=== PATIENT | female | born 1985 | race African-American/Black ===

== ENCOUNTER 2021-03-22 07:27 | Emergency (ER) | payer OTHER, SELFPAY ==
--- NOTE | ~2021-03-22 | US_ITS ---
US OB <=14 wk fetus w TV DATE: 03/22/2021 08:55 INDICATION: Right adnexal pain, vaginal bleeding TECHNIQUE: Real-time imaging via transabdominal and transvaginal approaches COMPARISON: None FINDINGS: Retroflexed uterus. The uterus measures approximately 12 cm height, 5.2 cm AP dimension. Th ere is an irregularly shaped gestational sac within the lower uterine segment. pole is identifi ed but no cardiac motion is present. [facility]-rump length averages 0.43 cm, consistent with 6 weeks 1 day +/- 4 days estimated gestational ag e. Gestational sac size likewise is consistent with 6 weeks 1 day estimated gestational age 1.8 x 1.6 cm left ovarian corpus luteum cyst. No abnormal pelvic mass or abnormal pelvic fluid collection is noted otherwise. IMPRESSION: demise and impending Reviewed, dictated and finalized at [facility] Reviewed, dictated and finalized at [facility]. IMPRESSION: demise and impending
[2021-03-22 07:38] VITALS: BP 142/95; PULSE 66; RESP 15; TEMP 35.9; O2SAT 100
[2021-03-22 08:35] LABS: Add Urine Microscopic? YES; Appearance Urine Cloudy (Clear); Bacteria Urine Trace /hpf; Bilirubin Urine Negative (Negative); Blood Urine 3+ (Negative); Color Urine Yellow (Yellow); Glucose Urine UA Negative (Negative); Ketones Urine 1+ mg/dL (Negative); Leukocyte Esterase Ur Negative LEU/UL (Negative); Mucus Urine Heavy /lpf; Nitrate Urine Negative (Negative); Protein Urine 2+ mg/dL (Negative); RBC Urine >75 /hpf (0-2); Squamous Epithelial Cell Urine Moderate /hpf (Few)
[2021-03-22 08:38] LABS: Alanine Aminotransferase 18 U/L (4-35); Albumin Level 4.2 g/dL (3.5-5.1); Alkaline Phosphatase 50 U/L (38-126); Anion Gap 7 mmol/L (8-16); Aspartate Amino Transferase 32 U/L (14-36); Bilirubin,Total 0.4 mg/dL (0.2-1.3); Blood Urea Nitrogen 10 mg/dL (7-17); Calcium 9.2 mg/dL (8.4-10.2); Carbon Dioxide 27 mmol/L (22-30); Chloride 105 mmol/L (98-107); Estimated CRCL calculation 100 ml/min; Estimated Glomerular Filt Rate > 60; Glucose 77 mg/dL (65-105); Potassium 3.2 mmol/L (3.4-5.0); Sodium 139 mmol/L (137-145)
[2021-03-22 08:41] LABS: Specific Grav Ur 1.033 (1.001-1.035)
[2021-03-22 08:45] LABS: INR 1.1; Prothrombin Time 14.7 Seconds (11.1-14.7)
[2021-03-22 08:46] LABS: Partial Thromboplastin Time 27.8 SECONDS (22.3-36.8)
--- NOTE | 2021-03-22 08:53 | ED.FEMALEGU ---
HPI - Female Genitourinary General Chief complaint: Vaginal Bleeding Stated complaint: bleeding, positive preg test Time Seen by Provider: 03/22/21 07:40 History of Present Illness HPI Narrative: Patient is a 36-year-old female who presents ER with lower abdominal pain and vaginal bleeding. Patient reports she had a positive test last week. LMP 01/26/2021. She has been having spotting for the last 2 to 3 weeks that worsened over the last day is associated with pain in her right adnexal region. She is a EAB 1. Patient denies any urinary symptoms or vaginal discharge. No loss of consciousness. 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 Related Data Home Medications Medication Instructions Recorded Confirmed atenolol 03/22/21 03/22/21 phentermine mg 03/22/21 topiramate 03/22/21 Allergies Allergy/AdvReac Type Severity Reaction Status Date / Time No Known Allergies Allergy Unverified 06/16/19 13:13 Review of Systems Review of Systems: All systems reviewed & are unremarkable except as noted in HPI and below Constitutional: Constitutional: Denies chills and Denies fatigue Gastrointestinal: Gastrointestinal: Reports abdominal pain, Denies nausea and Denies vomiting Genitourinary: Genitourinary: Reports abnormal vaginal bleeding, Denies hematuria, Denies nocturia, Denies dysuria, Reports pelvic pain and Denies vaginal discharge PMFSH Past Medical History Medical History (Updated 03/22/21 @ 09:45 by Gabe Rodriguez MD) Hypertension Surgical History Surgical History (Updated 03/22/21 @ 08:55 by Gabe Rodriguez MD) No history of previous surgery Social History Social History (Updated 03/22/21 @ 08:55 by Gabe Rodriguez MD) Smoking status: Never smoker Gender identity (if verbalized by the patient): Female Exam Narrative: Exam Narrative: GENERAL: Well-appearing, well-nourished, and in no acute distress. HEAD: Normocephalic, atraumatic. ENT: Mucous membranes moist. CHEST: Clear to auscultation. No respiratory distress. HEART: Regular rate and rhythm. Normal peripheral pulses. ABDOMEN: Soft, mild tenderness in the right lower pelvis, nondistended. EXTREMITIES: Normal range of motion. No edema. NEURO: Alert and oriented x3. PSYCH: Normal mood and affect. Course Course Emergency Course: Patient informed of results. Discussed with Dr. Dukes. Will have patient follow-up tomorrow in clinic and they will decide then if patient will be given Cytotec. We have added on a CBC. Patient concerned that she may need a D&C that she is cramping. Discussed expectant management is normal and routine in the situation. Discussed patient may take Tylenol and ibuprofen for cramping. Vital Signs Vital signs: Vital Signs Temperature 96.6 F L 03/22/21 07:38 Pulse Rate 66 03/22/21 07:38 Respiratory Rate 15 03/22/21 07:38 Blood Pressure 142/95 H 03/22/21 07:38 Pulse Oximetry 100 03/22/21 07:38 Temperature 96.6 F L 03/22/21 07:38 Pulse Rate 60 03/22/21 09:15 Respiratory Rate 18 03/22/21 09:15 Blood Pressure 145/71 H 03/22/21 09:15 Pulse Oximetry 100 03/22/21 09:15 MDM - Female Genitourinary Lab Data Result diagrams: 03/22/21 08:09 Labs: Lab Results 03/22/21 03/22/21 03/22/21 Range/Units 08:09 08:09 08:09 PT (11.1-14.7) Seconds INR APTT (22.3-36.8) SECONDS Sodium (137-145) mmol/L Potassium (3.4-5.0) mmol/L Chloride (98-107) mmol/L Carbon Dioxide (22-30) mmol/L Anion Gap (8-16) mmol/L BUN (7-17) mg/dL Creatinine (0.7-1.0) mg/dL Estim Creat Clear Calc ml/min Estimated GFR (59 - ) Glucose (65-105) mg/dL Calcium (8.4-10.2) mg/dL Total Bilirubin (0.2-1.3) mg/dL AST (14-36) U/L ALT (4-35) U/L Alkaline Phosphatase (38-126) U/L Total Protein (6.3-8.2) g/dL Albumin (3.5-5.1) g/dL Beta HCG, Quant 71521.00 mIU/ML Urine Color Yellow
[2021-03-22 09:15] VITALS: BP 145/71; PULSE 60; RESP 18; O2SAT 100
[2021-03-22 10:13] LABS: Basophils Percent Auto 0.4 % (0.2-1.2); Eosinophils Absolute Auto 0.1 K/mm3 (0-0.3); Hematocrit 41.4 % (37.0-47.0); Hemoglobin 12.8 g/dL (12.0-15.0); Immature Granulocyte Absolute 0.03 K/mm3 (0.00-0.031); Immature Granulocyte Percent A 0.4 % (0-0.5); Immature Platelet Fraction Pct 15.2 % (0.9-11.2); Lymphocytes Absolute Auto 1.85 K/mm3 (0.9-3.2); Lymphocytes Percent Auto 26.4 % (18.3-44.2); Mean Corpuscular HGB Conc 30.9 g/dl (32-36); Mean Corpuscular Hemoglobin 26.9 pg (26-34); Mean Platelet Volume 13.1 fl (7.4-10.4); Monocytes Absolute Auto 0.5 K/mm3 (0.1-0.6); Monocytes Percent Auto 7.1 % (2.6-8.5); Neutrophils Absolute Auto 4.5 K/mm3 (1.3-6.7); Neutrophils Percent Auto 63.7 % (45.5-73.1); Platelet Count Result 209 k/mm3 (150-375); Red Blood Count 4.76 M/mm3 (4.2-5.4); Red Cell Distribution Width 13.2 % (11.5-14.5)
[2021-03-22 10:36] VITALS: BP 118/75; PULSE 78; RESP 18; O2SAT 100
== END 2021-03-22 10:36 | disposition home or self-care (01) ==
PROVIDERS: Emergency Provider Emergency Medicine
DX: O03.4 Incomplete spontaneous abortion without complication (principal)
CPT/HCPCS: 36415; 76801; 76817; 80053; 81001; 84702; 85025; 85055; 85461; 85610; 85730; 87077; 87086; 87088; 87186; 99284

== ENCOUNTER 2021-03-24 00:54 | Day surgery (SDC) | payer OTHER, SELFPAY ==
[2021-03-23 16:45] VITALS: BMI 39.4
--- NOTE | 2021-03-23 17:31 | P.HP_ITS ---
History of Present Illness History of Present Illness Consent: Risks, benefits, and alternatives have been discussed and questions answered. Patient agrees to proceed with procedure. Chief complaint: demise Narrative: * Elyssa Doss is a 36 year old female A1 @ 10 weeks by lmp and 6 weeks by ultrasound. Patient reports some spotting and cramping seen in the ER on 03/21/21. with document of 6 week demise in lower uterine segment. patient reports increased bleeding and still cramping. Review of Systems Review of Systems: All systems reviewed & are unremarkable except as noted in HPI and below PMFSH Past Medical History Medical History (Updated 03/23/21 @ 17:44 by Emory Dukes MD) Hypertension Missed Surgical History Surgical History (Updated 03/23/21 @ 17:36 by Emory Dukes MD) H/O: History of dilation and curettage History of laparoscopy No history of previous surgery Social History Social History (Updated 03/22/21 @ 08:55 by Gabe Rodriguez MD) Smoking status: Never smoker Drinks per week: 2 Substance use type: does not use Gender identity (if verbalized by the patient): Female Spiritual care concerns: No Meds Home Medications and Allergies Home Medications Medication Instructions Recorded Confirmed Type phentermine 37.5 mg PO DAILY 03/22/21 03/23/21 History topiramate 25 mg PO DAILY PRN 03/22/21 03/23/21 History atenolol 100 mg PO DAILY 03/23/21 03/23/21 History Allergies Allergy/AdvReac Type Severity Reaction Status Date / Time No Known Allergies Allergy Unverified 06/16/19 13:13 Vital Signs 140/84 resp 18 pulse 88 bmi 40 Exam Const: General: cooperative Cardio: Rate: regular rate Rhythm: regular rhythm GI: Other: abdomen soft nontender uterus 6 weeks cervix fingertip. Assessment and Plan Assessment and plan (1) History of dilation and curettage: Code(s): Z98.890 - Other specified postprocedural states Status: Acute (2) H/O: : Code(s): Z98.891 - History of uterine scar from previous surgery Status: Acute (3) History of laparoscopy: Code(s): Z98.890 - Other specified postprocedural states Status: Acute (4) Missed : Code(s): O02.1 - Missed Status: Acute Assessment and Plan: Scheduled for a suction dilation and curettage risk and benefits reviewed with patient in detail.
[2021-03-24] MEDS: ACETAMINOPHEN 500 MG TABLET 1000 MG PO (10:33)
[2021-03-24] MEDS: LACTATED RINGERS 1,000 ML 30 ML IV CONT ×2 (10:35→12:31)
[2021-03-24 10:48] VITALS: BP 128/88; PULSE 118; RESP 20; TEMP 36.4; O2SAT 100
--- NOTE | 2021-03-24 11:00 | WPDANESEPPF ---
Anes - Initial Pre Proc Eval Procedure: Operation Date: 03/24/21 12:00 Proposed Procedures p Suction Dilatation And Curettage - Emory Dukes MD Date/Time: 03/24/21 11:00 Surgeon: Emory Dukes MD Pre Op Diagnosis: demise Patient Data Age: 36 Gender: F Height: 1.7 m Weight: 112.6 kg Last Vital Signs Temp 36.4 C L 03/24/21 10:48 Pulse 118 H 03/24/21 10:48 Resp 20 03/24/21 10:48 BP 128/88 03/24/21 10:48 Pulse Ox 100 03/24/21 10:48 Allergies Allergy/AdvReac Type Severity Reaction Status Date / Time No Known Allergies Allergy Unverified 06/16/19 13:13 Home Medications Medication Instructions Recorded Confirmed Type phentermine 37.5 mg PO DAILY 03/22/21 03/24/21 History topiramate 25 mg PO DAILY PRN 03/22/21 03/24/21 History atenolol 100 mg PO DAILY 03/23/21 03/24/21 History lactobacillus combination no.8 3,000 mmu cells PO DAILY 03/24/21 03/24/21 History [Adult Probiotic] misoprostol 800 mcg PO ONCE 03/24/21 03/24/21 History prenat.vits,velma,tqh-yoiz-ojwof 1 tablet PO DAILY 03/24/21 03/24/21 History [ Vitamin] vitamin B complex 1 tablet PO DAILY 03/24/21 03/24/21 History Patient hx anesthesia problems: none Family hx anesthesia problems: none PMFSH Past Medical History Medical History (Updated 03/23/21 @ 17:44 by Emory Dukes MD) Hypertension Missed Surgical History Surgical History (Updated 03/23/21 @ 17:36 by Emory Dukes MD) H/O: History of dilation and curettage History of laparoscopy No history of previous surgery Social History Social History (Updated 03/24/21 @ 11:01 by Barrera Encinas DO) Smoking status: Never smoker Alcohol use details: drinks somewhere between 1 pint to 1 fifth of alcohol 2-3x per week Substance use type: does not use Gender identity (if verbalized by the patient): Female Spiritual care concerns: No Anes - Eval Final PreProcedure Day of Procedure 03/24/21 11:00 Patient weight: obese Heart: regular rate and rhythm Lungs: clear to auscultation and normal air movement Airway: Mallampati scale class II Neurological: alert and oriented Last oral intake: >/= 8 hours ASA classification: III Emergent: no Anesthetic plan: proceed Anesthesia type and monitoring: general GIVS and standard monitoring Informed Consent: The patient's anesthetic plan and its attendant risks and benefits were discussed with the patient/family/POA. Questions were solicited and answers provided to the satisfaction of the patient/family/POA.
--- NOTE | 2021-03-24 11:56 | WPDHPUPDATE1 ---
History and Physical Update Update Date/Time: 03/24/21 11:56 History and Physical has been reviewed, including an updated exam of the patient. There are NO changes in the patient's condition. Risks, benefits, and alternatives have been discussed and questions answered. Patient agrees to proceed with procedure.
--- NOTE | 2021-03-24 12:26 | PM.PROC ---
Procedure Note - Detailed Date of procedure: 03/24/21 Pre-op diagnosis: demise Post-op diagnosis: same Procedure performed: suction dilation and curettage Description of procedure: Patient was taken to the operating room with IV running. She was prepped draped in normal sterile fashion and placed in a lithotomy position. A bivalve speculum was placed into the vagina anterior lip of the cervix was grasped with a single-tooth tenaculum cervix was injected at the 2 and 10 o'clock position with 5cc of lidocaine bilaterally. Uterus was sounded to 8cm. And the cervix was serially dilated to Hegar dilators to an 8. A 8 curved suction device was introduced into the uterus and suction applied. Two passes were made with minimal tissue noted. Sharp curettage was performed in all 4 quadrants of the uterus for sharp gritty texture. An 1 pass was made for remaining tissue. Specimen was sent for pathology. However believe patient passed the specimen prior to D and C. Anesthesia: GLMA and local Surgeon: Emory Dukes MD Estimated blood loss (mL): 10 Drains: No Packing: No Pathology: yes Complications: None Condition: stable Disposition: observation Findings: dilated cervix otherwise normal
[2021-03-24 12:31] VITALS: BP 138/72; PULSE 79; RESP 18; O2SAT 98
[2021-03-24 13:00] VITALS: BP 161/88; PULSE 47; RESP 18
[2021-03-24 13:15] VITALS: BP 131/79; PULSE 57; RESP 18
== END 2021-03-24 13:28 | disposition home or self-care (01) ==
PROVIDERS: Visit Provider Obstetrics & Gynecology
PROC: (CPT 59820; principal; 2021-03-24 12:00)
DX: O02.1 Missed abortion (principal); I10 Essential (primary) hypertension
CPT/HCPCS: 59820; 88305; A9270; J2250; J2704; J3010; J7120

== ENCOUNTER 2022-12-04 08:51 | Emergency (ER) | payer OTHER, SELFPAY ==
[2022-12-04 08:57] VITALS: BP 138/102; PULSE 74; RESP 16; TEMP 36.4; O2SAT 100
[2022-12-04 09:28] LABS: Basophils Percent Auto 0.6 % (0.2-1.2); Eosinophils Absolute Auto 0.2 K/mm3 (0-0.3); Eosinophils Percent Auto 2.5 % (0-4.4); Hemoglobin 13.1 g/dL (12.0-15.0); Immature Granulocyte Absolute 0.03 K/mm3 (0.00-0.031); Immature Granulocyte Percent A 0.4 % (0-0.5); Lymphocytes Absolute Auto 1.53 K/mm3 (0.9-3.2); Lymphocytes Percent Auto 22.2 % (18.3-44.2); Mean Corpuscular HGB Conc 31.2 g/dl (32-36); Mean Corpuscular Hemoglobin 26.6 pg (26-34); Mean Corpuscular Volume 85.4 fl (80-100); Mean Platelet Volume 11.6 fl (7.4-10.4); Monocytes Absolute Auto 0.4 K/mm3 (0.1-0.6); Monocytes Percent Auto 5.5 % (2.6-8.5); Neutrophils Absolute Auto 4.8 K/mm3 (1.3-6.7); Neutrophils Percent Auto 68.8 % (45.5-73.1); Platelet Count Result 241 k/mm3 (150-375); Red Blood Count 4.92 M/mm3 (4.2-5.4); Red Cell Distribution Width 12.9 % (11.5-14.5); White Blood Count 6.9 K/mm3 (4.5-10.0)
[2022-12-04 09:37] LABS: Alanine Aminotransferase 31 U/L (6-35); Alkaline Phosphatase 74 U/L (38-126); Anion Gap 3 mmol/L (8-16); Aspartate Amino Transferase 28 U/L (14-36); Bilirubin,Total 0.5 mg/dL (0.2-1.3); Blood Urea Nitrogen 9 mg/dL (7-17); Calcium 8.2 mg/dL (8.4-10.2); Carbon Dioxide 29 mmol/L (22-30); Chloride 104 mmol/L (98-107); Estimated CRCL calculation 99 ml/min; Estimated Glomerular Filt Rate > 60; Glucose 88 mg/dL (65-110); Lipase 64 U/L (23-300); Potassium 3.6 mmol/L (3.4-5.0); Sodium 136 mmol/L (137-145)
[2022-12-04 10:18] LABS: Appearance Urine Slightly Cloudy (Clear); Bilirubin Urine 1+ (Negative); Blood Urine Trace-intact (Negative); Color Urine Yellow (Yellow); Glucose Urine UA Negative (Negative); Ketones Urine Negative (Negative); Leukocyte Esterase Ur Negative LEU/UL (Negative); Nitrate Urine Negative (Negative); Protein Urine 2+ mg/dL (Negative); Specific Grav Ur >= 1.030 (1.001-1.035)
[2022-12-04 10:25] LABS: Bacteria Urine Trace /hpf; Mucus Urine Heavy /lpf; Squamous Epithelial Cell Urine Many /hpf (Few); WBC Urine 0-3 /hpf
[2022-12-04 10:27] LABS: Add Urine Microscopic? YES
[2022-12-04 10:40] VITALS: BP 141/99; PULSE 78; RESP 15; O2SAT 100
[2022-12-04 10:45] LABS: Magnesium 1.9 mg/dL (1.6-2.3)
[2022-12-04] MEDS: SODIUM CHLORIDE 0.9% IV 1,000 ML 999 ML IV CONT (10:46)
[2022-12-04 10:47] VITALS: PULSE 88
[2022-12-04] MEDS: METOPROLOL TARTRATE INJ 5 MG/5 ML VIAL IV PUSH (10:47)
[2022-12-04] MEDS: ONDANSETRON INJ 4 MG/2 ML VIAL IV PUSH (10:47)
--- NOTE | 2022-12-04 11:14 | ED.ABDPAIN ---
HPI - Abdominal Pain General Chief Complaint: Abdominal Pain Stated Complaint: vomiting/harper Time Seen by Provider: 12/04/22 10:13 History of Present Illness HPI narrative: This 37 year old female patient with PMH of migraines and HTN presents to the ER with complaints of having a headache that started yesterday with N/V. She denies any fevers or diarrhea. She has had resolution now of her headache and has no abdominal pain, but still vomited this AM, prompting her to come to the ER for evaluation. She had not taken her BP meds yet this AM. Her LMP was two weeks ago. She is no longer taking any Phentermine that is on her medication list and she has no CP, dyspnea. Radiation: none Migration to: no migration Associated symptoms: nausea and vomiting Related Data Hx Last Menstrual Period: 2 weeks ago Home Medications Medication Instructions Recorded Confirmed phentermine 37.5 mg tablet 37.5 mg PO DAILY 03/22/21 03/24/21 topiramate 25 mg tablet 25 mg PO DAILY PRN Headache 03/22/21 03/24/21 atenolol 100 mg tablet 100 mg PO DAILY 03/23/21 03/24/21 lactobacillus combination no.8 3 3,000 mmu cells PO DAILY 03/24/21 03/24/21 billion cell capsule (Adult Probiotic) misoprostol 200 mcg tablet 800 mcg PO ONCE 03/24/21 03/24/21 prenat.vits,velma,ery-uktq-gzyxo 1 tablet PO DAILY 03/24/21 03/24/21 vitamin B complex 1 tablet PO DAILY 03/24/21 03/24/21 Allergies Allergy/AdvReac Type Severity Reaction Status Date / Time No Known Allergies Allergy Unverified 06/16/19 13:13 Review of Systems Review of Systems: All systems reviewed & are unremarkable except as noted in HPI and below PMFSH Past Medical History Medical History Hypertension Missed Surgical History Surgical History H/O: History of dilation and curettage History of laparoscopy No history of previous surgery Social History Social History (Reviewed 12/04/22 @ 11:17 by TAE SpearsCPeter Smoking status: Never smoker Alcohol use details: drinks somewhere between 1 pint to 1 fifth of alcohol 2-3x per week Substance use type: does not use Gender identity (if verbalized by the patient): Female Spiritual care concerns: No Exam Const: General: healthy appearing, no acute distress and alert; No diaphoretic or ill appearing HENMT: Head: normal to inspection Face/Nose/Sinus: Normal external nose present, Normal nares present and no nasal discharge noted Mouth: Yes Normal oral and palatal mucosa present Eyes: Conjunctivae: conjunctivae normal Neck: Neck: normal visual inspection and no lymphadenopathy Chest: Chest palpation & inspection: normal inspection of the chest and no tenderness Resp: Effort & Inspection: normal respiratory effort Auscultation: clear to auscultation bilaterally Cardio: Rate: regular rate Rhythm: regular rhythm Heart sounds: no murmurs GI: Inspection: non-distended GI Palp: Yes Soft to palpation, No Tenderness to palpation present (GI) and No Guarding due to palpation present (GI) Auscultation: normal bowel sounds Back/Spine/Pelvis: Back: no CVA tenderness Skin: General skin exam: normal color Rashes: no rashes Wounds: no wounds Neuro: General: patient oriented x3 and moves all extremities Speech: normal speech Gait exam (Neuro): Normal gait present Extrem: General: normal to inspection and no pedal edema Psych: Mental Status: mental status grossly normal Affect: normal affect Course Course Emergency Course: Initial BP was elevated at 138/102. Pt. was unable to take her morning Beta Sol as she was nauseated and vomiting. She was given Lopressor 5 mg and tolerated without difficulty. BP recovered nicely to 135/99. Pt's vss reviewed and are otherwise normal. She has unremarkable labs otherwise and she has no current complaints of pain, dyspnea and is stable for discharge. S
[2022-12-04 11:31] VITALS: BP 135/99; PULSE 79; RESP 18; O2SAT 100
[2022-12-04 12:15] VITALS: BP 149/100; PULSE 78; RESP 18; O2SAT 100
== END 2022-12-04 12:15 | disposition home or self-care (01) ==
PROVIDERS: Emergency Medicine; Emergency Provider Nurse Practitioner Adult Health
DX: R11.2 Nausea with vomiting, unspecified (principal); I10 Essential (primary) hypertension
CPT/HCPCS: 36415; 80053; 81001; 81025; 83690; 83735; 85025; 96361; 96374; 96375; 99284; J2405; J7030

== ENCOUNTER 2023-03-25 20:19 | Emergency (ER) | payer OTHER, SELFPAY ==
[2023-03-25 20:27] VITALS: BP 134/82; PULSE 78; RESP 20; TEMP 36.6; O2SAT 100
[2023-03-25] MEDS: LIDOCAINE HCL 1% LOCAL INJ 10 ML VIAL 2 ML INFILTRATE (21:21)
[2023-03-25] MEDS: IBUPROFEN 400 MG TABLET 800 MG PO (21:21)
[2023-03-25] MEDS: TETANUS,DIPHTHERIA,AC PERTUSSIS ADULT (0.5 ML) BOOSTRIX IM (21:23)
--- NOTE | 2023-03-25 21:59 | ED.WOUNDLAC ---
HPI - Wound/Laceration General Chief Complaint: Wound/Laceration Stated Complaint: left ring finger lac Time Seen by Provider: 03/25/23 21:03 Source: patient Mode of arrival: ambulatory Limitations: no limitations History of Present Illness HPI narrative: This is a 38 year old female who presents for evaluation of left ring finger laceration. This occurred 1 hour ago accidentally cut her finger. She states she was unable to get her laceration to stop bleeding . IT has also become more painful. She is unsure of her last tetanus Related Data Home Medications Medication Instructions Recorded Confirmed phentermine 37.5 mg tablet 37.5 mg PO DAILY 03/22/21 03/24/21 topiramate 25 mg tablet 25 mg PO DAILY PRN Headache 03/22/21 03/24/21 atenolol 100 mg tablet 100 mg PO DAILY 03/23/21 03/24/21 lactobacillus combination no.8 3 3,000 mmu cells PO DAILY 03/24/21 03/24/21 billion cell capsule (Adult Probiotic) misoprostol 200 mcg tablet 800 mcg PO ONCE 03/24/21 03/24/21 prenat.vits,velma,zvo-rzjq-krdla 1 tablet PO DAILY 03/24/21 03/24/21 vitamin B complex 1 tablet PO DAILY 03/24/21 03/24/21 Allergies Allergy/AdvReac Type Severity Reaction Status Date / Time No Known Allergies Allergy Verified 03/25/23 20:30 Review of Systems Review of Systems: All systems reviewed & are unremarkable except as noted in HPI and below PMFSH Past Medical History Medical History Hypertension Missed Surgical History Surgical History H/O: History of dilation and curettage History of laparoscopy No history of previous surgery Social History Social History Smoking status: Never smoker Alcohol use details: drinks somewhere between 1 pint to 1 fifth of alcohol 2-3x per week Substance use type: does not use Gender identity (if verbalized by the patient): Female Spiritual care concerns: No Exam Const: General: no acute distress Nutritional Appearance: well nourished Orientation/consciousness: patient oriented x3 Eyes: EOM: EOMs intact bilaterally Resp: Effort & Inspection: normal respiratory effort Cardio: Other: strong bilateral radial pulse Skin: Other: left finger finger laceration to palmar side just distal to DIP joint. bleeding controlled. no tendon injury Neuro: General: patient oriented x3, moves all extremities and CN's II-XI intact bilaterally Extrem: Other: FRM , left finger laceration on palmar aspect, 1 cm Psych: Mental Status: mental status grossly normal Affect: normal affect Attitude: cooperative Course Reevaluation(s) Reevaluation #1: I discused with patient wound care as I have placed 3 sutures. She understands it will need to be removed. She was given ibuprofen 800 mg PO in ED along with tetanus immunization. She thinks her pain will not be controlled with ibuprofen so request norco prescription. Date: 03/25/23 Time: 22:01 Vital Signs Vital signs: Vital Signs Temperature 97.8 F 03/25/23 20:27 Pulse Rate 78 03/25/23 20:27 Respiratory Rate 20 03/25/23 20:27 Blood Pressure 134/82 03/25/23 20:27 Pulse Oximetry 100 03/25/23 20:27 Oxygen Delivery Room Air 03/25/23 20:27 Temperature 97.8 F 03/25/23 20:27 Pulse Rate 70 03/25/23 22:25 Respiratory Rate 13 03/25/23 22:25 Blood Pressure 128/73 03/25/23 22:25 Pulse Oximetry 100 03/25/23 22:25 Oxygen Delivery Room Air 03/25/23 20:27 Procedures Laceration Laceration 1: Date: 03/25/23 Time: 22:11 Site: hand (left ring finger) Side (If applicable): left Size (cm): 1 Description: linear Depth: simple, single layer Local Anesthetic: lidocaine 1% and none (digital nerve block) Amount of anesthesia used (mL): 2 Pre-repair: wound explored
[2023-03-25 22:25] VITALS: BP 128/73; PULSE 70; RESP 13; O2SAT 100
== END 2023-03-25 22:26 | disposition home or self-care (01) ==
PROVIDERS: Emergency Provider General Practice
DX: S61.215A Laceration without foreign body of left ring finger without damage to nail, initial encounter (principal); Z23 Encounter for immunization; I10 Essential (primary) hypertension; W26.0XXA Contact with knife, initial encounter
CPT/HCPCS: 12001; 90471; 90715; 99283; A9270

== ENCOUNTER 2024-01-05 15:01 | Emergency (ER) | payer SELFPAY ==
--- NOTE | ~2024-01-05 | XR_ITS ---
EXAM: XR ankle RT min 3V DATE: 01/05/2024 16:02 HISTORY: injury . COMPARISON: None available. FINDINGS: Normal mineralization. Tiny ossific density superior to the talonavicular joint in the lat eral view. Otherwise, no fracture or dislocation. No lytic or blastic lesion. Moderate plantar and mi ld Achilles enthesopathy. Syndesmotic enthesophytes. No erosion or periosteal change. Soft tissues wi thin normal limits. IMPRESSION: Possible small talonavicular capsular avulsion fracture fragment, may be acute or chronic , correlate with point tenderness. Otherwise, no acute osseous finding in the right ankle. Reviewed, dictated and finalized at [facility] IMPRESSION: Possible small talonavicular capsular avulsion fracture fragment, m ay be acute or chronic, correlate with point tenderness. Otherwise, no acute os seous finding in the right ankle.
[2024-01-05 15:30] VITALS: BP 151/91; PULSE 85; RESP 18; TEMP 36.7; O2SAT 100
[2024-01-05 19:02] VITALS: BP 171/117; PULSE 90; RESP 14; O2SAT 100
--- NOTE | 2024-01-05 19:10 | ED.GENADULT ---
HPI - General Adult General Chief complaint: Extremity Injury, Lower Stated complaint: right ankle injury Time Seen by Provider: 01/05/24 17:20 History of Present Illness HPI narrative: This is a 38-year-old female presenting with ankle pain. Patient was tried on a new pair of roller skates last night when she fell and twisted her ankle. She had significant pain throughout the day and has been unable to bear weight. she has been treating her pain with Motrin and her mother's hydrocodone. No other injuries. Related Data Home Medications Medication Instructions Recorded Confirmed phentermine 37.5 mg tablet 37.5 mg PO DAILY 03/22/21 03/24/21 topiramate 25 mg tablet 25 mg PO DAILY PRN Headache 03/22/21 03/24/21 atenolol 100 mg tablet 100 mg PO DAILY 03/23/21 03/24/21 lactobacillus combination no.8 3 3,000 mmu cells PO DAILY 03/24/21 03/24/21 billion cell capsule (Adult Probiotic) misoprostol 200 mcg tablet 800 mcg PO ONCE 03/24/21 03/24/21 prenat.vits,velma,dor-zdhx-ffwhi 1 tablet PO DAILY 03/24/21 03/24/21 vitamin B complex 1 tablet PO DAILY 03/24/21 03/24/21 Allergies Allergy/AdvReac Type Severity Reaction Status Date / Time No Known Allergies Allergy Verified 01/05/24 19:08 [facility] Past Medical History Medical History Hypertension Missed Surgical History Surgical History H/O: History of dilation and curettage History of laparoscopy No history of previous surgery Social History Social History Smoking status: Never smoker Alcohol use details: drinks somewhere between 1 pint to 1 fifth of alcohol 2-3x per week Substance use type: does not use Gender identity (if verbalized by the patient): Female Spiritual care concerns: No Exam Narrative: APPEARANCE: No apparent distress. Head: atraumatic. EYES: EOMI, NOSE: Atraumatic NECK: Trachea midline RESPIRATORY: No increased rate of breathing CARDIOVASCULAR: RRR, ABDOMINAL: Non-distended MUSCULOSKELETAl: Focal exam of the right ankle showed moderate swelling over the lateral ankle. Point tenderness over the anterior tibial talar junction. No tenderness over the posterior malleolus, no tenderness at the base of the 5th metatarsal. Sensation intact cap refills less than 2 seconds. NEURO: Alert. Moving 4/4 extremities SKIN:: Warm, dry. Normal color PSYCHIATRIC: Normal affect Course Vital Signs Vital signs: Vital Signs Temperature 98.0 F 01/05/24 15:30 Pulse Rate 85 01/05/24 15:30 Respiratory Rate 18 01/05/24 15:30 Blood Pressure 151/91 H 01/05/24 15:30 Pulse Oximetry 100 01/05/24 15:30 Oxygen Delivery Room Air 01/05/24 15:30 Temperature 98.0 F 01/05/24 15:30 Pulse Rate 90 01/05/24 19:02 Respiratory Rate 14 01/05/24 19:02 Blood Pressure 171/117 H 01/05/24 19:02 Pulse Oximetry 100 01/05/24 19:02 Oxygen Delivery Room Air 01/05/24 15:30 Medical Decision Making MDM Narrative Medical decision making narrative: -Course: 38-year-old female presenting after twisting her ankle trying out roller skates. x-ray showed possible avulsion fracture over the talonavicular junction. Patient is unable to bear weight. Pain was treated she was placed on crutches. Patient given Podiatry follow-up. 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 Otherwise, no acute osseous finding in the right ankle. -Interventions: Toradol, Tylenol, oxycodone -Shared decision making / Disposition: discharge -RX Motrin Tylenol oxycodon
[2024-01-05] MEDS: ACETAMINOPHEN 500 MG TABLET 1000 MG PO (19:37)
[2024-01-05] MEDS: KETOROLAC 30 MG/ML VIAL (*BKC) IM (19:39)
[2024-01-05] MEDS: oxyCODONE HCL (*CRX) 5 MG TAB IR PO (19:42)
[2024-01-05 19:43] VITALS: BP 148/105; PULSE 69; RESP 17; O2SAT 100
--- NOTE | 2024-01-05 20:19 | PC.NURSE ---
Pt walked to nurses station on her crutches and stated I am ready to go. Pt stood at nurses station to be discharged. No last set of vitals obtained.
--- NOTE | 2024-01-05 20:20 | PC.NURSE ---
Adrián placed wayne wrap and crutch training and had dr francois review.
== END 2024-01-05 20:23 | disposition home or self-care (01) ==
LOC: ANHED 19:28
PROVIDERS: Emergency Provider Emergency Medicine
DX: S93.401A Sprain of unspecified ligament of right ankle, initial encounter (principal); S92.151A Displaced avulsion fracture (chip fracture) of right talus, initial encounter for closed fracture; I10 Essential (primary) hypertension; V00.121A Fall from non-in-line roller-skates, initial encounter; Y93.51 Activity, roller skating (inline) and skateboarding
CPT/HCPCS: 73610; 96372; 99283; A9270; J1885

== ENCOUNTER 2024-12-09 08:33 | Emergency (ER) | payer SELFPAY ==
[2024-12-09 08:41] VITALS: BP 174/114; PULSE 67; RESP 18; TEMP 36.4; O2SAT 100
--- OUTSIDE RECORDS SUMMARY | 2024-12-09 08:46 | XMS_ITS | Encounter Summary ---
Author Organization [facility] Address [address] [place] [address] Care Team Providers Care Roll Press Operator Name Role Phone Pilar Gunn MD Primary Care Provider [phone] Ismael Spaulding RN Unavailable [phone] Encounter Details Date Type Department Care Team (Late st Contact Info) Description 07/04/2015 [facility] Outpatient Visit [facility]/ EVALUATION UNIT [address] [facility] [place] [address] Masha Benson MD [address] [facility] [address] [place], [place] [id number] Social History Tobacco Use Types Packs/Day Years Used Date Smoking Tobacco: Never Alcohol Use Standard Drinks/Week Comments Yes 0 (1 standard drink = 0.6 oz pur e alcohol) Sex and Gender Information Value Date Recorded Sex Assigned at Not on file Gender Identity Not on file Sexual Orientation Not on file documented as of this encounter Functional Status Functional Status Response Date of Assess ment Is person deaf or have serious hearing difficult y? No 06/26/2015 Is person blind or have serious difficulty seein g? No 06/26/2015 Does person have serious dif ficulty walking/climbing stairs? No 06/26/2015 Does person have difficulty dressing/bathing? No 06/26/2015 Does person have difficulty doing errands alone? No 06/26/2015 Cognitive Status Response Date of Assessm ent Does person have difficulty concentrating/remembering/making decisions? No 06/26/2015 documented as of this encounter Plan of Treatment Not on file documented as of this encounter Visit Diagnoses Not on filedocumented in this encounter Care Teams Roll Press Operator Relationship Specialty Start Date End Date Pilar Gunn MD [address] [id number] PCP - General Internal Medicine 06/25/15 Ismael Spaulding, RN Tactical Response Group Officer 06/28/15 documented as of this encounter
--- OUTSIDE RECORDS SUMMARY | 2024-12-09 08:46 | XMS_ITS | Referral Summary ---
Author Organization [facility] Address [address] [place] [address] Care Team Providers Care Shank Maker Name Role Phone Pilar Gunn MD Primary Care Provider Allergies No known active allergies Social History Tobacco Use Types Packs/Day Years Used Date Smoking Tobacco: Never Assessed Personal Safety Answer Date Recorded Getting School Help Needed Not on file 01/24 Comments No Sex and Gender Information Value Date Recorded Sex Assigned at Not on file Legal Sex Female 10:10 AM ELECTRICAL PROSPECTING SUPERVISOR Gender Identity Not on file Sexual Orientation Not on file Last Filed Vital Signs Vital Sign Reading Time Taken Comments Blood Pressure 157/111 11/13/2021 7:29 PM ELECTRICAL PROSPECTING SUPERVISOR Pulse 89 11/13/2021 7:29 PM ELECTRICAL PROSPECTING SUPERVISOR Temperature 36.7 ??C (98.1 ??F) 11/13/2021 7:29 PM CS T Respiratory Rate 19 11/13/2021 7:29 PM ELECTRICAL PROSPECTING SUPERVISOR Oxygen Saturation 100% 11/13/2021 7:29 PM ELECTRICAL PROSPECTING SUPERVISOR Inhaled Oxygen Concentration - - Weight 109.9 kg (242 lb 4.6 oz) 11/13/2021 7:29 PM ELECTRICAL PROSPECTING SUPERVISOR Height 167.6 cm (5' 6 ) 11/13/2021 7:29 PM ELECTRICAL PROSPECTING SUPERVISOR Body Mass Index 39.11 11/13/2021 7:29 PM ELECTRICAL PROSPECTING SUPERVISOR Plan of Treatment Not on file Care Teams Shank Maker Relationship Specialty Start Date End Date Pilar Gunn MD [address] [facility] [address] [place] [address] PCP - General Family Medicine 11/13/21
--- OUTSIDE RECORDS SUMMARY | 2024-12-09 08:47 | XMS_ITS | Clinical Summary ---
Author Organization [facility] Address [address] [place] [address] Phone Care Team Providers Care Sales Support Coordinator Name Role Phone Unavailable Primary Care Provider Unavailabl e Allergies No known active allergies Medications losartan (COZAAR) 25 mg tablet Take 25 mg by mouth daily. Active hydroCHLOROthiaz eric 25 mg tablet Take 25 mg by mouth daily. Active Social History Tobacco Use Types Packs/Day Years Used Date Smoking Tobacco: Never Smokeless Tobacco: Never Tobacco Cessation:Counseling Given: Not Answered Alcohol Use Standard Drinks/Week Comments Not Currently 0 (1 standard drink = 0.6 oz pur e alcohol) Feeling Safe Answer Date Recorded Are you in a relationship wi th someone who hurts you emotionally and/or physically? No 08/17/2024 Comments Unknown Sex and Gender Information Value Date Recorded Sex Assigned at Not on file Legal Sex Female 6:00 AM CDT Gender Identity Not on file Sexual Orientation Not on file Last Filed Vital Signs Vital Sign Reading Time Taken Comments Blood Pressure 148/75 08/17/2024 7:00 AM CDT Pulse 78 08/17/2024 7:00 AM CDT Temperature 36.7 ??C (98 ??F) 08/17/2024 6:05 AM CDT Respiratory Rate 17 08/17/2024 7:00 AM CDT Oxygen Saturation 99% 08/17/2024 7:00 AM CDT Inhaled Oxygen Concentration - - Weight 123.8 kg (273 lb) 08/17/2024 6:05 AM CDT Height 165.1 cm (5' 5 ) 08/17/2024 6:05 AM CDT Body Mass Index 45.43 08/17/2024 6:05 AM CDT Plan of Treatment Health Maintenance Due Date Last Done Comments Pre-Diabetes and Diabetes Screening 1984 DTAP/TDAP/TD VACCINES (1 - Tdap) 01/11/2003 HEPATITIS B VACCINES (1 of 3 - 19+ 3-dose series) 01/11/2003 CERVICAL CANCER SCREENING 01/11/2014 BREAST CANCER SCREENING 2024 INFLUENZA VACCINE (#1) 2024 HPV VACCINES Aged Out No longer eligi ble based on patient's age to complete this topic PNEUMOCOCCAL VACCINE 0-64 YEARS Aged Out No longer eligible based on patient's age to complete this topic
--- OUTSIDE RECORDS SUMMARY | 2024-12-09 08:47 | XMS_ITS | Clinical Summary ---
Author Organization [facility] [place] Address [address] [place] [address] Care Team Providers Care Port Traffic Manager Name Role Phone Pilar Gunn MD Primary Care Provider Allergies No known active allergies Social History Tobacco Use Types Packs/Day Years Used Date Smoking Tobacco: Never Assessed Personal Safety Answer Date Recorded Getting School Help Needed Not on file 01/24 Comments No Sex and Gender Information Value Date Recorded Sex Assigned at Not on file Legal Sex Female 10:10 AM CRISIS THERAPIST Gender Identity Not on file Sexual Orientation Not on file Last Filed Vital Signs Vital Sign Reading Time Taken Comments Blood Pressure 157/111 11/13/2021 7:29 PM CRISIS THERAPIST Pulse 89 11/13/2021 7:29 PM CRISIS THERAPIST Temperature 36.7 ??C (98.1 ??F) 11/13/2021 7:29 PM CS T Respiratory Rate 19 11/13/2021 7:29 PM CRISIS THERAPIST Oxygen Saturation 100% 11/13/2021 7:29 PM CRISIS THERAPIST Inhaled Oxygen Concentration - - Weight 109.9 kg (242 lb 4.6 oz) 11/13/2021 7:29 PM CRISIS THERAPIST Height 167.6 cm (5' 6 ) 11/13/2021 7:29 PM CRISIS THERAPIST Body Mass Index 39.11 11/13/2021 7:29 PM CRISIS THERAPIST Plan of Treatment Not on file Care Teams Port Traffic Manager Relationship Specialty Start Date End Date Pilar Gunn MD [address] [facility] [address] [place] [address] PCP - General Family Medicine 11/13/21
--- OUTSIDE RECORDS SUMMARY | 2024-12-09 08:47 | XMS_ITS | Patient Health Summary ---
Author Organization [facility] Address [address] [place] [address] Care Team Providers Care Automatic Lathe Setter Name Role Phone Pilar Gunn MD Primary Care Provider [phone] Ismael Spaulding RN Unavailable [phone] Note from [facility] [place],non-owned Affiliates and Associated Physician Practices is amultiple site organization consisting of ambulatory clinics and hospital sitesin [place], [place], [place] and [place]. This disclosure is being madepursuant to the Care Everywhere program and may not contain all information available regarding this patient. Last updated 18.[facility] Allergies No known active allergies Medications * Be aware that medications may not be up to date on this document. Alwaysverify current medications with the patient. * atenolol (TENORMIN) 100 MG tablet(Started 07/27/2021) * topiramate (TOPAMAX) 25 MG tablet(Started 07/27/2021) * valACYclovir (VALTREX) 1 GM tablet(Started 08/04/2021) Active Problems Problem Noted Date Diagnosed Date Pelvic adhesions 06/26/2015 Ovarian cyst 06/04/2015 Mild preeclampsia 04/26/2013 Supervision of normal 04/25/2013 Dermoid cyst of ovary Social History Tobacco Use Types Packs/Day Years Used Date Smoking Tobacco: Never Smokeless Tobacco: Never Alcohol Use Standard Drinks/Week Comments Yes 0 (1 standard drink = 0.6 oz pur e alcohol) PHQ-2 Answer Date Recorded PHQ2 TOTAL SCORE 0 08/12/2021 Sex and Gender Information Value Date Recorded Sex Assigned at Not on file Gender Identity Not on file Sexual Orientation Not on file Last Filed Vital Signs Vital Sign Reading Time Taken Comments Blood Pressure 144/90 08/12/2021 10:14 AM CDT Pulse 88 03/10/2019 3:04 AM CDT Temperature 36.9 ??C (98.5 ??F) 03/09/2019 7:42 PM CD T Respiratory Rate 16 03/10/2019 3:04 AM CDT Oxygen Saturation 100% 03/10/2019 3:04 AM CDT Inhaled Oxygen Concentration - - Weight 111.1 kg (245 lb) 08/12/2021 10:14 AM CDT Height 165.1 cm (5' 5 ) 08/12/2021 10:14 AM CDT Body Mass Index 40.77 08/12/2021 10:14 AM CDT Procedures * PAP IG LB+HPV APTIMA(Performed 08/12/2021) Performed for Well woman exam * CARDIAC EKG ORDER(Performed 03/19/2019) * XR CHEST 2VW(Performed 03/10/2019) Performed for Dizziness * HCG URINE QUALITATIVE - POINT OF CARE(Performed 03/09/2019) * URINALYSIS W/MICROSCOPIC NO CULTURE(Performed 03/09/2019) * T4 FREE(Performed 03/09/2019) * TSH(Performed 03/09/2019) * TROPONIN I(Performed 03/09/2019) * COMPREHENSIVE METABOLIC PANEL(Performed 03/09/2019) * CBC W AUTO DIFFERENTIAL(Performed 03/09/2019) * EKG 12-LEAD(Performed 03/09/2019) Performed for Dizziness * CARDIAC EKG ORDER(Performed 11/21/2018) * CT ABDOMEN PELVIS W CONTRAST(Performed 10/10/2018) Performed for Abdominal pain, generalized * XR CHEST 2VW(Performed 10/10/2018) Performed for Abdominal pain, generalized * HCG URINE QUALITATIVE - POINT OF CARE(Performed 10/10/2018) * EKG 12-LEAD(Performed 10/10/2018) Performed for Abdominal pain, generalized * URINALYSIS REFLEX TO MICROSCOPIC NO CULTURE(Performed 10/10/2018) * TROPONIN I(Performed 10/10/2018) * LIPASE BLOOD(Performed 10/10/2018) * COMPREHENSIVE METABOLIC PANEL(Performed 10/10/2018) * CBC W AUTO DIFFERENTIAL(Performed 10/10/2018) * XR CHEST 2VW(Performed 11/25/2017) * INFLUENZA A+B PCR(Performed 11/25/2017) * CARDIAC RHYTHM STRIP ORDER(Performed 06/30/2015) * LAB RESULTS ORDER(Performed 06/30/2015) * PATHOLOGY TISSUE EXAM (STL)(Performed 06/26/2015) Performed for Other unknown and unspecified cause of morbidity or mortality [799.9] * LAPAROSCOPIC OVARIAN CYSTECTOMY(Performed 06/26/2015) * LAPAROSCOPY OOPHORECTOMY(Performed 06/26/2015) * LYSIS ADHESIONS(Performed 06/26/2015) * LAPAROSCOPY DIAGNOSTIC(Performed 06/26/2015) * CBC W AUTO DIFFERENTIAL(Performed 06/26/2015) * TYPE + SCREEN PANEL(Performed 06/26/2015) * PATHOLOGY/GENETICS HISTORICAL-ONBASE(Performed 06/26/2015) * CT ABDOMEN PELVIS W CONTRAST(Performed 06/25/2015) * PT-INR [facility](Performed 06/25/2015) * CULTURE URINE(Performed 06/25/2015) * US TRANSVAGINAL NON OB(Performed 06/25/2015) * US PELVIS COMPLETE(Performed 06/25/2015) * HCG URINE QUALITATIVE - POCT (IP) [facility](Performed 06/25/2015) * BASIC METABOLIC PANEL (CALCIUM TOTAL)(Performed 06/25/2015) * HEPATIC FUNCTION PANEL(Performed 06/25/2015) * COMPREHENSIVE METABOLIC PANEL(Performed 06/25/2015) * URINALYSIS W/MICROSCOPIC NO CULTURE(Performed 06/25/2015) * CBC W AUTO DIFFERENTIAL(Performed 06/25/2015) * CBC W AUTO DIFFERENTIAL(Performed 06/25/2015) * CT ABDOMEN PELVIS W CONTRAST(Performed 05/20/2015) * LIPASE BLOOD(Performed 05/20/2015) * COMPREHENSIVE METABOLIC PANEL(Performed 05/20/2015) * URINALYSIS REFLEX TO MICROSCOPIC NO CULTURE(Performed 05/20/2015) * CBC W AUTO DIFFERENTIAL(Performed 05/20/2015) * CBC W AUTO DIFFERENTIAL(Performed 05/20/2015) * HCG URINE QUALITATIVE - POCT (IP) [facility](Performed 05/20/2015) * HCG URINE QUALITATIVE - POCT (IP) [facility](Performed 05/20/2015) * BASIC METABOLIC PANEL (CALCIUM TOTAL)(Performed 02/13/2015) * CBC W AUTO DIFFERENTIAL(Performed 02/13/2015) * CBC W AUTO DIFFERENTIAL(Performed 02/13/2015) * HCG URINE QUALITATIVE - POCT (IP) [facility](Performed 02/13/2015) * HCG URINE QUALITATIVE - POCT (IP) [facility](Performed 02/13/2015) * LAB RESULTS ORDER(Performed 05/24/2013) * CBC W AUTO DIFFERENTIAL(Performed 05/20/2013) * PATHOLOGY TISSUE EXAM (STL)(Performed 05/19/2013) * BLOOD GASES CORD NAN(Performed 05/19/2013) * BLOOD GASES CORD ARTERIAL(Performed 05/19/2013) * EPIDURAL BLOCK(Performed 05/19/2013) * EPIDURAL BLOCK(Performed 05/19/2013) * BLOOD TYPE VERIFICATION(Performed 05/16/2013) * CBC W AUTO DIFFERENTIAL(Performed 05/16/2013) Performed for Mild preeclampsia ([facility]), Supervision of normal ([facility]) * TYPE + SCREEN PANEL(Performed 05/16/2013) Performed for Mild preeclampsia ([facility]), Supervision of normal ([facility]) * INTRAUTERINE PRESSURE CATHETER(Performed 05/16/2013) Performed for Mild preeclampsia ([facility]), Supervision of normal ([facility]) * URINALYSIS REFLEX TO MICROSCOPIC NO CULTURE(Performed 05/16/2013) Performed for Mild preeclampsia ([facility]) * URINE MICROSCOPIC ONLY(Performed 05/16/2013) Performed for Mild preeclampsia ([facility]) * PROTEIN CREATININE RATIO URINE RANDOM PNL(Performed 05/16/2013) Performed for Mild preeclampsia ([facility]) * LDH BLOOD(Performed 05/16/2013) Performed for Mild preeclampsia ([facility]) * URIC ACID BLOOD(Performed 05/16/2013) Performed for Mild preeclampsia ([facility]) * COMPREHENSIVE METABOLIC PANEL(Performed 05/16/2013) Performed for Mild preeclampsia ([facility]) * CBC W AUTO DIFFERENTIAL(Performed 05/16/2013) Performed for Mild preeclampsia ([facility]) * IMAGING/RADIOLOGY/XRAY RESULTS ORDER(Performed 05/12/2013) * BIOPHYSICAL PROFILE W NST(Performed 05/06/2013) * SONOGRAM - LIMITED(Performed 05/06/2013) * BIOPHYSICAL PROFILE W NST(Performed 05/02/2013) * SONOGRAM - LIMITED(Performed 05/02/2013) * SONOGRAM - LIMITED(Performed 04/29/2013) * BIOPHYSICAL PROFILE W NST(Performed 04/29/2013) * PROTEIN URINE TIMED QUANTITATIVE(Performed 04/25/2013) Performed for Supervision of normal ([facility]) * CREATININE URINE TIMED(Performed 04/25/2013) Performed for Supervision of normal ([facility]) * SONOGRAM - COMPLETE(Performed 04/25/2013) * PROTEIN CREATININE RATIO URINE RANDOM PNL(Performed 04/24/2013) Performed for Supervision of normal ([facility]) * URINALYSIS REFLEX MICROSCOPIC REFLEX CULTURE(Performed 04/24/2013) Performed for Supervision of normal ([facility]) * LDH BLOOD(Performed 04/24/2013) Performed for Supervision of normal ([facility]) * URIC ACID BLOOD(Performed 04/24/2013) Performed for Supervision of normal ([facility]) * COMPREHENSIVE METABOLIC PANEL(Performed 04/24/2013) Performed for Supervision of normal ([facility]) * CBC W AUTO DIFFERENTIAL(Performed 04/24/2013) Performed for Supervision of normal ([facility]) * BIOPHYSICAL PROFILE W NST(Performed 04/18/2013) * SONOGRAM - COMPLETE(Performed 03/26/2013) * US OB TRANSVAGINAL DOPPLER(Performed 10/19/2012) * CHLAMYDIA + GC AMPLIFIED PROBE(Performed 10/19/2012) * WET PREP SMEAR(Performed 10/19/2012) * TYPE + SCREEN PANEL(Performed 10/19/2012) * HCG BETA BLOOD QUANTITATIVE(Performed 10/19/2012) * CBC W AUTO DIFFERENTIAL(Performed 10/19/2012) * HCG URINE QUALITATIVE - POINT OF CARE(Performed 10/19/2012) * URINALYSIS REFLEX MICROSCOPIC REFLEX CULTURE(Performed 10/19/2012) * IMAGING/RADIOLOGY/XRAY RESULTS ORDER(Performed 12/20/2011) * CARDIAC RHYTHM STRIP ORDER(Performed 12/20/2011) * CYTOLOGY NON-TIME SIGNAL WIRER PANEL(Performed 12/14/2011) * CYTOLOGY NON-TIME SIGNAL WIRER PANEL(Performed 12/14/2011) * COMPREHENSIVE METABOLIC PANEL(Performed 12/14/2011) * GROSS + MICRO EXAM(Performed 12/14/2011) * GROSS + MICRO EXAM(Performed 12/14/2011) * US TRANSVAG W DOPPLER(Performed 12/13/2011) Performed for RLQ abdominal pain * TYPE + SCREEN PANEL(Performed 12/13/2011) * HCG BLOOD QUALITATIVE(Performed 12/13/2011) * BASIC METABOLIC PANEL (CALCIUM TOTAL)(Performed 12/13/2011) * CBC W AUTO DIFFERENTIAL(Performed 12/13/2011) * SECTION (EMERGENCY) Results * PAP IG LB+HPV APTIMA (08/12/2021 11:19 AM CDT) Diagnosis [facility] INSURANCE BILL Comment:NEGATIVE FOR INTRAEP ITHELIAL LESION OR MALIGNANCY. Specimen Adequacy [facility] INSURANCE BILL Comment:Satisfactory for margie luation. No endocervical component is identified. Clinician Provided ICD10 [facility] INSURANCE BILL Comment: Z01.419 N85.2 Performed by [employer] INSURANCE BILL Comment:Helen Interiano, Cyto technologist (ASCP) Comment . [facility] INSURANCE BILL Note [facility] INSURANCE BILL Comment: The Pap smear is a screening test designed to aid in the detection of premalignant and malignant conditions of the uterine cervix. ??It is not a diagnostic procedure and should not be used as the sole means of detecting cervical cancer. ??Both false-positive and false-negative reports do occur. ? . [facility] CPT Code Automation [facility] INSURANCE BILL Comment: This liquid based ThinPrep(R) pap test was screened with the use of an image guided system. Human papillomavirus Aptima Negative Negative [facility] INSURANCE BILL Comment: This nucleic acid amplification test detects fourteen high-risk HPV types (16,18,31,33,35,39,45,51,52,56,58,59,66,68) without differentiation. Pathology/Cytolog y PART OF UTERINE CERVIX / Unknown 08/12/2021 11:19 AM CDT 08/15/2021 Narrative [facility] INSURANCE BILL - 08/16/2021 10:10 AM CDT No. of containers..01 ThinPrep Vial Resulting Agency Comment Lab Testing performed at: [facility] ??Srikanth Abdullahi [phone] Jose Rodriguez MD LAB - PATHOLOGY/CYT OLOGY ORDERABLES [facility] INSURANCE BILL [address] [address] * CARDIAC EKG ORDER (03/19/2019 1:56 PM CDT) Only the most recent of2 resultswithin the time period is included. Narrative 03/19/2019 1:56 PM CDT Ordered by an unspecified provider. Scanned Document CARDIAC SERVICES ORD ERABLES * XR CHEST 2VW (03/10/2019 1:18 AM CDT) Only the most recent of3 resultswithin the time period is included. Anatomical Region Laterality Modality Chest Radiographic Lou ging 03/10/2019 1:22 AM CDT Impressions 03/10/2019 4:11 PM CDT Impression: No acute pulmonary process. This report has been dictated by Ricci Vicente M.D. (Resident). Dr. LOUISE Clarke M.D. have personally reviewed and interpreted this examination/study. This report was electronically signed by LOUISE HAMMOND M.D. ??on 03/10/2019 4:11 PM . Narrative 03/10/2019 4:11 PM CDT Exam: XR CHEST 2VW. Date: 03/10/2019 1:18 AM. History: DIZZINESS. Comparison: Chest radiograph dated 10/10/2018. Findings: There is no focal consolidation, pleural effusion or pneumothorax. The cardiomediastinal silhouette is normal. The visible bony thorax is intact. Procedure Note Louise Hammond MD - 03/10/2019 Exam: XR CHEST 2VW. Date: 03/10/2019 1:18 AM. History: DIZZINESS. Comparison: Chest radiograph dated 10/10/2018. Findings: There is no focal consolidation, pleural effusion or pneumothorax. The cardiomediastinal silhouette is normal. The visible bony thorax isintact. Impression: No acute pulmonary process. This report has been dictated by Ricci Vicente M.D. (Resident). Dr. LOUISE Clarke M.D. have personally reviewed and interpreted this examination/study. This report was electronically signed by LOUISE HAMMOND M.D. on 03/10/2019 4:11 PM . [facility] IMAG[facility] ORDERABLES * HCG URINE QUALITATIVE - POINT OF CARE (03/09/2019 11:59 PM CDT) Only the most recent of3 resultswithin the time period is included. HCG Qual Urine Negative Negative [facility] P OCT TESTING QC Verified Yes Yes [facility] POCT TESTING Urine URINE / Unknown 03/09/2019 1 1:59 PM CDT [facility] LAB - POINT OF CAR E ORDERABLES Performing Organization Address City/State/[facility] Co de Phone Number [facility] POCT TESTING [address] [phone] * (ABNORMAL) URINALYSIS W/MICROSCOPIC NO CULTURE (03/09/2019 11:54 PM CDT) Only the most recent of2 resultswithin the time period is included. Color UA Yellow Straw, Yellow, Colorless 03/10/2019 12:05 AM [facility] Clarity UA Slt Cloudy Clear, Slt Cloudy 03/10/2019 12:05 AM [facility] Specific Wirtz UA 1.029 1.005 - 1.030 03/10/2019 12:05 AM [facility] pH UA 5.0 5.0 - 8.0 pH 03/10/2019 12:[address] [facility] Protein UA Negative Negative mg/dL 03/10/2019 12:[address] [facility] Glucose UA Negative Negative mg/dL 03/10/2019 12:05 AM [facility] Ketone UA Trace(A) Negative mg/dL 03/10/2019 12:[address] [facility] Bilirubin UA Negative Negative mg/dL 03/10/2019 12:05 AM [facility] Blood UA Negative Negative 03/10/2019 12:05 AM [facility] Nitrite UA Negative Negative 03/10/2019 12:05 AM [facility] Leukocyte Esterase Negative Negative 03/10/2019 12:05 AM [facility] Urobilinogen UA 4.0(A) Negative mg/dL 03/10/2019 12:05 AM [facility] RBC UA 3-5 None Seen, 0-2, 3-5 /HPF 03/10/2019 12:05 AM [facility] WBC UA 0-5 None Seen, 0-5 /HPF 03/10/2019 12:05 AM [facility] Bacteria UA Trace None, Trace /HPF 03/10/2019 12:05 AM [facility] Squamous Epithelial Cells UA 0-2 None Seen, 0-2 /HPF 03/10/2019 12:05 AM [facility] Mucus UA 1+ None, 1+ /LPF 03/10/2019 12:05 AM [facility] Transitional Epithelial Cells UA 0-2 None Seen, 0-2 /HPF 03/10/2019 12:05 AM [facility] Hyaline Casts UA 6-10(A) None Seen, 0-2 /LPF 03/10/2019 12:05 AM [facility] Urine URINE SPECIMEN OBTAINED BY CLEAN CATCH PROCEDURE / Unknown Collection / Unknown 03/09/2019 11:54 PM CDT 03/09/2019 11:58 PM CDT [facility] - URINALYSIS O RDERABLES [address] [phone] * TROPONIN I (03/09/2019 11:38 PM CDT) Only the most recent of2 resultswithin the time period is included. Troponin I 0.015 <0.032 ng/mL 03/10/2019 12:05 AM [facility] Blood BLOOD SPECIMEN / Unknown Venipuncture / Unknown 03/09/2019 11:38 PM CDT 03/09/2019 11:38 PM CDT Vira High [facility] - CHEMISTRY OR DERABLES [facility] [address] [phone] * (ABNORMAL) CBC W AUTO DIFFERENTIAL (03/09/2019 11:38 PM CDT) Only the most recent of15 resultswithin the time period is included. WBC 5.8 3.5 - 10.5 10? 3 /uL 03/09/2019 11:42 PM [facility] RBC 5.04(H) 3.90 - 5.00 10? 6 /uL 03/09/2019 11:42 PM [facility] Hemoglobin 13.2 12.0 - 15.5 g/dL 03/09/2019 11:42 PM [facility] Hematocrit 42.7 35.0 - 45.0 % 03/09/2019 11:42 PM [facility] MCV 84.7 81.0 - 97.0 fL 03/09/2019 11:42 PM [facility] MCH 26.2(L) 28.0 - 34.0 pg 03/09/2019 11:42 PM [facility] MCHC 30.9(L) 32.0 - 36.0 g/dL 03/09/2019 11:42 PM [facility] Platelet Count 240 150 - 400 10? 3 /uL 03/09/2019 11:42 PM [facility] RDW-SD 39.4 36.0 - 50.0 fL 03/09/2019 11:42 PM [facility] RDW-CV 12.8 11.2 - 14.8 % 03/09/2019 11:42 PM [facility] MPV 12.4 9.3 - 12.8 fL 03/09/2019 11:42 PM [facility] nRBC Absolute 0.00 0 10? 3 /uL 03/09/2019 11:42 PM [facility] nRBC Auto 0.0 0 /100 WBC 03/09/2019 11:42 PM [facility] Neutrophils % 56.5 35.0 - 70.0 % 03/09/2019 11:42 PM [facility] Lymphocytes % 31.1 19.7 - 55.1 % 03/09/2019 11:42 PM T [facility] Monocytes % 8.7 3.0 - 15.0 % 03/09/2019 11:42 PM T [facility] Eosinophils % 2.9 0.0 - 6.0 % 03/09/2019 11:42 PM [facility] Basophil % 0.5 0.0 - 1.5 % 03/09/2019 11:42 PM [facility] Neutrophils Absolute 3.3 1.6 - 7.0 10? 3 /uL 03/09/2019 11:42 PM T [facility] Lymphocyte Absolute 1.8 0.8 - 2.9 10? 3 /uL 03/09/2019 11:42 PM [facility] Monocytes Absolute 0.50 0.14 - 0.66 10? 3 /uL 03/09/2019 11:42 PM [facility] Eosinophils Absolute 0.17 0.00 - 0.45 10? 3 /uL 03/09/2019 11:42 PM T [facility] Basophils Absolute 0.03 0.00 - 0.06 10? 3 /uL 03/09/2019 11:42 PM [facility] Immature Granulocytes % 0.3 0.0 - 1.0 % 03/09/2019 11:42 PM [facility] Blood BLOOD SPECIMEN / Unknown Venipuncture / Unknown 03/09/2019 11:38 PM CDT 03/09/2019 11:38 PM CDT Vira High [facility] LAB - HEMATOLOGY O RDERABLES [address] [phone] * (ABNORMAL) COMPREHENSIVE METABOLIC PANEL (03/09/2019 11:38 PM CDT) Only the most recent of7 resultswithin the time period is included. BUN 16 7 - 26 mg/dL 03/09/2019 11:58 PM T [facility] Creatinine 1.0 0.6 - 1.2 mg/dL 03/09/2019 11:58 PM T [facility] Sodium 139 136 - 145 mmol/L 03/09/2019 11:58 PM [facility] Potassium 3.1(L) 3.5 - 4.5 mmol/L 03/09/2019 11:58 PM [facility] Chloride 105 98 - 107 mmol/L 03/09/2019 11:58 PM [facility] CO2 24 22 - 29 mmol/L 03/09/2019 11:58 PM [facility] Glucose 79 70 - 115 mg/dL 03/09/2019 11:[address] [facility] Calcium 9.2 8.4 - 10.2 mg/dL 03/09/2019 11:58 PM [facility] Protein Total 7.7 6.0 - 8.3 g/dL 03/09/2019 11:58 PM [facility] Albumin 4.0 3.4 - 5.0 g/dL 03/09/2019 11:58 PM [facility] Bilirubin Total 0.6 0.2 - 1.2 mg/dL 03/09/2019 11:58 PM [facility] Alkaline Phosphatase 80 40 - 150 Units/L 03/09/2019 11:58 PM [facility] ALT 14 0 - 55 Units/L 03/09/2019 11:58 PM [facility] AST 17 5 - 34 Units/L 03/09/2019 11:58 PM [facility] Anion Gap 13 8 - 18 03/09/2019 11:58 PM [facility] BUN/Creatinine Ratio 16 7 - 23 03/09/2019 11:58 PM [facility] Osmolality Calculated 288 270 - 300 mOsm/kg 03/09/2019 11:58 PM [facility] Albumin/Globulin Ratio 1.1 1.1 - 2.3 03/09/2019 11:58 PM [facility] eGFR >60 >60 mL/min/1.7 3 m2 03/09/2019 11:58 PM [facility] Blood BLOOD SPECIMEN / Unknown Venipuncture / Unknown 03/09/2019 11:38 PM CDT 03/09/2019 11:38 PM CDT Vira High [facility] LAB - CHEMISTRY OR DERABLES [facility] [address] [place] [address] * TSH (03/09/2019 11:38 PM CDT) Pathologist [facility] TSH 1.370 0.350 - 4.940 uIU/mL 03/10/2019 3:01 AM CDT [facility] Blood BLOOD SPECIMEN / Unknown Venipuncture / Unknown 03/09/2019 11:38 PM CDT 03/09/2019 11:38 PM CDT Columba Moctezuma MD LAB - CHEMISTRY CATERINA DAVIS Performing Organization Address [facility] Co de Phone Number [address] [phone] * T4 FREE (03/09/2019 11:38 PM CDT) Pathologist [facility] T4 Free 1.2 0.7 - 1.5 ng/dL 03/10/2019 3:01 AM CDT [facility] Blood BLOOD SPECIMEN / Unknown Venipuncture / Unknown 03/09/2019 11:38 PM CDT 03/09/2019 11:38 PM CDT Columba Moctezuma MD LAB - CHEMISTRY [facility] DAVIS Performing Organization Address [facility] Co de Phone Number [address] [phone] * EKG 12-LEAD (03/09/2019 11:28 PM CDT) Only the most recent of2 resultswithin the time period is included. Ventricular Rate 79 BPM [facility] MUSE Atrial Rate 79 BPM [facility] MUSE P-R Interval 156 ms [facility] MUSE QRS Duration ms 86 ms [facility] MUSE Q-T Interval ms 390 ms [facility] MUSE QTC Calculation (Bezet) 447 ms [facility] MUSE Calculated P [place] 53 degrees SL MUSE Calculated R [place] 11 degrees [facility] MUSE Calculated T [place] 5 degrees [facility] MUSE Interpretation EKG NORMAL SINUS RHYTHM WITH SINUS ARRHYTHMIA POSSIBLE LEFT ATRIAL ENLARGEMENT LEFT VENTRICULAR HYPERTROPHY NONSPECIFIC T WAVE ABNORMALITY ABNORMAL ECG WHEN COMPARED WITH ECG OF 10-OCT-2018 21:34, NONSPECIFIC T WAVE ABNORMALITY NOW EVIDENT IN ANTERIOR LEADS Confirmed by BLAKE.JORGE GOULD ([id number]), television news video editor Carrillo Daley ([id number]) on 03/14/2019 9:55:13 PM [facility] MUSE 03/09/2019 11:2 8 PM CDT 03/14/2019 9:55 PM CDT Vira High [employer] [facility] ECG ORDERABLES [facility] MUSE * CT ABDOMEN PELVIS W CONTRAST (10/10/2018 11:14 PM RADIAL SAW OPERATOR) Only the most recent of3 resultswithin the time period is included. Anatomical Region Laterality Modality Abdomen, Pelvis Computed Tomogra phy 10/10/2018 11:1 5 PM RADIAL SAW OPERATOR Impressions 10/11/2018 9:04 AM RADIAL SAW OPERATOR IMPRESSION: 1. No acute process identified in the abdomen or pelvis. Dictated by Patrick Harrison MD ([facility] radiology). I, Dr. Yassine DWYER M.D. have personally reviewed and interpreted this examination/study. This report was electronically signed by Yassine DWYER M.D. ??on 10/11/2018 9:04 AM . Narrative 10/11/2018 9:04 AM RADIAL SAW OPERATOR EXAMINATION: Computed tomography (CT) of the abdomen and pelvis with contrast HISTORY: abd pain TECHNIQUE: CT of the abdomen and pelvis was performed following the uneventful administration of 100 mL of Isovue 370 intravenous contrast according to standard protocol. COMPARISON: Comparison is made with CT abdomen and pelvis with contrast dated 06/25/2015. FINDINGS: The aorta is normal in course and caliber. The visible lung bases are clear. The heart size is normal without pericardial effusion. The liver enhances homogenously. The gallbladder is normal without evidence of wall thickening, pericholecystic fluid, or gallstones. The intrahepatic and extrahepatic bile ducts are nondilated. The spleen enhances homogenously without focal lesion. The pancreas and adrenal glands are normal. The kidneys enhance symmetrically. There is no evidence of renal calculus or hydronephrosis. The distal esophagus and stomach appear normal. The small bowel and large bowel are normal in caliber without evidence of wall thickening or obstruction. The appendix appears normal without appendicolith or surrounding inflammatory changes. No free air or free fluid is identified within the abdomen. There is no abdominal lymphadenopathy. The urinary bladder is distended with fluid and appears normal. The uterus appears normal. No free fluid is seen within the pelvis. A few prominent bilateral inguinal lymph nodes measuring up to 1.1 cm in short axis on the right (series 3, image 163). Bone windows demonstrate no suspicious lytic or blastic lesions. The visible osseous structures are intact. Procedure Note Catie Dwyer MD - 10/11/2018 EXAMINATION: Computed tomography (CT) of the abdomen and pelvis with contrast HISTORY: abd pain TECHNIQUE: CT of the abdomen and pelvis was performed following the uneventful administration of 100 mL of Isovue 370 intravenous contrast according to standard protocol. COMPARISON: Comparison is made with CT abdomen and pelvis with contrast dated 06/25/2015. FINDINGS: The aorta is normal in course and caliber. The visible lung bases are clear. The heart size is normal without pericardial effusion. The liver enhances homogenously. The gallbladder is normal without evidence of wall thickening, pericholecystic fluid, or gallstones. The intrahepatic and extrahepatic bile ducts are nondilated. The spleen enhances homogenously without focal lesion. The pancreas and adrenal glands are normal. The kidneys enhance symmetrically. There is noevidence of renal calculus or hydronephrosis. The distal esophagus and stomach appear normal. The small bowel andlarge bowel are normal in caliber without evidence of wall thickening or obstruction. The appendix appears normal without appendicolith or surrounding inflammatory changes. No free air or free fluid isidentified within the abdomen. There is no abdominal lymphadenopathy. The urinary bladder is distended with fluid and appears normal. Theuterus appears normal. No free fluid is seen within the pelvis. A few prominent bilateral inguinal lymph nodes measuring up to 1.1 cm in short axis onthe right (series 3, image 163). Bone windows demonstrate no suspicious lytic or blastic lesions. The visible osseous structures are intact. IMPRESSION: 1. No acute process identified in the abdomen or pelvis. Dictated by Patrick Harrison MD (rn radiology). Dr. Yassine Clarke M.D. have personally reviewed and interpretedthis examination/study. This report was electronically signed by Yassine DWYER M.D. on 10/11/2018 9:04 AM . Hailey Molina [facility] ORDERABLES * (ABNORMAL) URINALYSIS REFLEX TO MICROSCOPIC NO CULTURE (10/10/2018 9:27 PM RADIAL SAW OPERATOR) Only the most recent of3 resultswithin the time period is included. Color UA Jenny(A) Straw, Yellow, Colorless, Light Yellow 10/10/2018 9:51 PM [facility] Clarity UA Hazy(A) Clear 10/10/2018 9:51 PM [facility] Specific Wirtz UA 1.036(H) 1.001 - 1.030 10/10/2018 9:51 PM [facility] pH UA 6.0 5.0 - 8.0 10/10/2018 9:51 PM [facility] Protein UA 100(A) <=20 mg/dL 10/10/2018 9:51 PM [facility] Glucose UA Negative Negative mg/dL 10/10/2018 9:51 PM [facility] Ketone UA Trace(A) Negative mg/dL 10/10/2018 9:51 PM [facility] Bilirubin UA Negative Negative mg/dL 10/10/2018 9:51 PM [facility] Blood UA Negative Negative 10/10/2018 9:51 PM [facility] Nitrite UA Negative Negative 10/10/2018 9:51 PM [facility] Leukocyte Esterase Trace(A) Negative 10/10/2018 9:51 PM [facility] Urobilinogen UA 3.0(H) <2.0 mg/dL 8 9:51 PM [facility] WBC UA 5(H) 0 - 2 /HPF 10/10/2018 9:51 PM [facility] Squamous Epithelial Cells UA 27(H) 0 - 1 /HPF 10/10/2018 9:51 PM [facility] Mucus UA Many(A) None /LPF 10/10/2018 9:51 PM [facility] Uric Acid Crystals UA Many(A) Rare, Occasional, Few, None /HPF 10/10/2018 9:51 PM [facility] Urine URINE SPECIMEN OBTAINED BY CLEAN CATCH PROCEDURE / Unknown Collection / Unknown 10/10/2018 9:27 PM RADIAL SAW OPERATOR 10/10/2018 9:40 PM RADIAL SAW OPERATOR Vj Lema MD LAB - URINALYSIS ORD ERABLES Performing Organization Address [facility] Co de Phone Number [address] [phone] * LIPASE BLOOD (10/10/2018 9:26 PM RADIAL SAW OPERATOR) Only the most recent of2 resultswithin the time period is included. Pathologist [facility] Lipase 34 8 - 78 Units/L 10/10/2018 9:58 PM RADIAL SAW OPERATOR [facility] Blood BLOOD SPECIMEN / Unknown Venipuncture / Unknown 10/10/2018 9:26 PM RADIAL SAW OPERATOR 10/10/2018 9:40 PM RADIAL SAW OPERATOR Hailey DA SILVA LAB - CHEMISTRY ORDERABLES Performing Organization Address [facility] [place] [address], [facility] [phone] * INFLUENZA A+B PCR (11/25/2017 3:28 PM RADIAL SAW OPERATOR) [facility] Influenza A Rapid CARMINE Negative Negative [facility] Influenza B CARMINE Rapid Negative Negative [facility] Nasopharyngeal NASOPHARYNGEAL SWAB / Unknown 11/25/2017 3:28 PM RADIAL SAW OPERATOR 11/25/2017 3:30 PM RADIAL SAW OPERATOR Narrative [facility] - 11/25/2017 4:09 PM RADIAL SAW OPERATOR Assay performed by Nucleic Acid Amplification. Results do not exclude the possibility of a mixed viral infection. NOTE: ??Detecting and identifying specific viral nucleic acids from individuals exhibiting signs and symptoms of respiratory infection aids in the diagnosis of respiratory infection, if used in conjunction with other clinical and laboratory findings. The results of this test should not be used as the sole basis for diagnosis, treatment, or patient management decisions. Jourdan Helms MD LAB - MICROBIOLOGY O RDERABLES Performing Organization Address [facility] [place] [address], [facility] [phone] * LAB RESULTS ORDER (06/30/2015 5:09 AM CDT) Only the most recent of2 resultswithin the time period is included. Narrative 06/30/2015 5:09 AM CDT Ordered by an unspecified provider. Scanned Document LAB - THERAPEUTIC DR ORLANDO MONITORING ORDERABLES * CARDIAC RHYTHM STRIP ORDER (06/30/2015 5:09 AM CDT) Only the most recent of2 resultswithin the time period is included. Narrative 06/30/2015 5:09 AM CDT Ordered by an unspecified provider. Scanned Document CARDIAC SERVICES ORD ERABLES * GROSS + MICRO EXAM (STL) (06/26/2015 3:27 AM CDT) Only the most recent of2 resultswithin the time period is included. Case Report Surgical Pathology Report ? Case: [id number] ? Authorizing Provider: ??Charles Romero Jr., MD ?Collected: ? 06/26/2015 03:27 AM ? Ordering Location: ? [facility] ? Received: ?06/26/2015 05:32 AM ? Pathologist: ? Jesse Minor MD ? Specimens: ?? A) - Cyst, right paratubal cyst ? B) - Ovary, right ovary ? 06/28/2015 4:42 PM [facility] Final Diagnosis 1. ??Right paratubal cyst, excision: -- ??Paratubal cyst 2. ??Right ovary, oophorectomy: -- ??Mature cystic teratoma [facility]/ 06/28/2015 4:42 PM [facility] Gross Description Received are two containers, each labeled Elyssa Doss. Container 1 is labeled right paratubal cyst. ??The container holds a 2.5 x 1 x 1 cm pink-mcarthur, clear fluid-filled, paratubal cyst. ??Bisecting of the cyst shows a clear fluid. ??The specimen is entirely submitted in a cassette labeled A1. Container 2 is labeled right ovary. ??The container holds a 50.7 gram, 8 x 7.5 x 6.5 cm multicystic disrupted ovary. ??The disrupted area measures 3.5 cm and extends to a smooth-walled cyst measuring 6.5 cm. ??Sections show multiple cysts containing a straw-colored yellow to mcarthur thick opaque fluid. ??The dyer of the cyst are smooth with no papillary excrescences grossly identified. ??Representativ e sections submitted in cassettes B1-B4. DYT/vr 06/28/2015 4:42 PM [facility] Microscopic Description Sections of the fallopian tube show paratubal cysts. Sections of the ovary show corpus luteum, epidermoid cyst, respiratory epithelium and mature thyroid tissue. No evidence of immature elements are noted. [facility]/sm 06/28/2015 4:42 PM [facility] Pathology/Cytology CYST TISSUE / Unknown 06/26/2015 3:27 AM CDT 06/26/2015 5:32 AM CDT Miscellaneous samples (specimen) ENTIRE OVARY / Unknown 06/26/2015 3:57 AM CDT 06/26/2015 5:32 AM CDT Charles Romero Jr., MD LAB - PATHOLOGY/ CYTOLOGY ORDERABLES Performing Organization Address [facility] Co de Phone Number [facility] [address] [place] [address] * TYPE + SCREEN PANEL (06/26/2015 12:33 AM CDT) Only the most recent of4 resultswithin the time period is included. ABO O 06/26/2015 1:50 AM CDT [facility] Rh Type Positive 06/26/2015 1:50 AM CDT [facility] Comment:History check perfor med. No retype required. Antibody Screen Negative 06/26/2015 1:50 AM CDT [facility] Miscellaneous samples (specimen) BLOOD SPECIMEN / Unknown 06/26/2015 12:33 AM CDT 06/26/2015 12:41 AM CDT Kristan Mackey MD LAB - BLOOD BANK ORDERABLES Performing Organization Address [facility] Co de Phone Number [facility] [address] [place] [address] * PATHOLOGY/GENETICS HISTORICAL-ONBASE (06/26/2015) 06/26/2015 Narrative [facility] - 06/29/2015 7:59 AM CDT Historical Provider LAB - CHEMISTRY O RDERABLES [facility] [address] * PT-INR [facility] (06/25/2015 4:36 PM CDT) PT 14.2 12.1 - 14.8 Seconds [facility] INR 1.1 See Comment [facility] Comment: Suggested therapeutic range for low-intensity coumadin therapy for venous thromboembolism prophylaxis is an INR of 2.0-3.0. ??For high risk patients (Mitral Valve Prosthesis, Atrial Fibrillation, history of TIA/stroke), suggested prophylactic therapeutic range is an INR of 2.5-3.5. Blood specimen (specimen) BLOOD SPECIMEN / Unknown 06/25/2015 4:36 PM CDT 06/25/2015 4:48 PM CDT Narrative [facility] - 06/25/2015 5:01 PM CDT Is patient on Heparin, Argatroban or Dabigatran?->N Leopoldo Hollis MD LAB - COAGULATION OR DERABLES Performing Organization Address [facility] Co de Phone Number [address] [phone] * CULTURE URINE (06/25/2015 4:36 PM CDT) Culture Urine Less than 10,000 CFU/ML of Normal Fecal Svetlana [facility] Comment: Culture Urine Less than 10,000 CFU/ML of Normal Urogenital/ Skin Svetlana after 48 Hours [facility] Comment: Urine specimen (specimen) URINE / Unknown 06/25/2015 4:36 PM CDT 06/25/2015 4:48 PM CDT Narrative [facility] - 06/27/2015 1:32 PM CDT Specimen Type->Urine Leopoldo Hollis MD LAB - MICROBIOLOGY O RDERABLES Performing Organization Address [facility] [place] [address], [facility] [phone] * US TRANSVAGINAL NON OB (06/25/2015 4:02 PM CDT) Anatomical Region Laterality Modality Abdomen Other Impressions 06/25/2015 5:20 PM CDT IMPRESSION: Complex right ovarian mass is stable to slightly increased in size since pelvic ultrasound dated 12/13/2011, most likely representing a dermoid. No evidence of ovarian torsion at this time; however, due to the presence of the right ovarian mass there is increased risk for torsion. IN FL[employer]W [employer]BER followup is recommended. Dr. Ro discussed the preliminary findings with Dr. Silva at 4:02 PM on 06/25/2015. This report was approved ??by Ricki Ro M.D. ?? on 06/25/2015 5:07 PM . I, Dr. RICKI BOLIVAR M.D. have personally reviewed and interpreted this examination/study. This report was electronically signed by RICKI BOLIVAR M.D. ??on 06/25/2015 5:20 PM . Narrative 06/25/2015 5:20 PM CDT EXAMINATION: Transabdominal and transvaginal ultrasound. HISTORY: 26-year-old female with pelvic pain, known right ovarian mass. COMPARISON: Pelvic ultrasound dated 12/13/2011, CT of the abdomen and pelvis dated 05/20/2015. FINDINGS: Transabdominal: An intrauterine device is present. Transvaginal: Uterus: 7.5 x 3.1 x 3.7 cm Right ovary: The right ovarian parenchyma is compressed by mass effect and is difficult to measure. Left ovary: 3.9 x 2.1 x 3.6 cm A right ovarian complex mass is stable to slightly increased in size since pelvic ultrasound dated 12/13/2011 and measures 6.8 x 5.5 x 6.0 cm, previously measuring 6.2 x 6.0 x 4.9 cm. The mass has mild internal echoes, scattered peripheral calcification, and an echogenic nodule with posterior acoustic shadowing measuring 2.2 x 2.5 x 1.9 cm. The endometrial bilayer thickness is difficult to measure due to presence of intrauterine device. There is no evidence of ovarian torsion. There is no free pelvic fluid. Procedure Note Ricki Bolivar MD - 02/09/2018 EXAMINATION: Transabdominal and transvaginal ultrasound. HISTORY: 26-year-old female with pelvic pain, known right ovarian mass. COMPARISON: Pelvic ultrasound dated 12/13/2011, CT of the abdomen and pelvisdated 05/20/2015. FINDINGS: Transabdominal: An intrauterine device is present. Transvaginal: Uterus: 7.5 x 3.1 x 3.7 cm Right ovary: The right ovarian parenchyma is compressed by mass effect andis difficult to measure. Left ovary: 3.9 x 2.1 x 3.6 cm A right ovarian complex mass is stable to slightly increased in size sincepelvic ultrasound dated 12/13/2011 and measures 6.8 x 5.5 x 6.0 cm,previously measuring 6.2 x 6.0 x 4.9 cm. The mass has mild internalechoes, scattered peripheral calcification, and an echogenic nodule with posterior acoustic shadowing measuring 2.2 x2.5 x 1.9 cm. The endometrial bilayer thickness is difficult to measuredue to presence of intrauterine device. There is no evidence of ovariantorsion. There is no free pelvic fluid. IMPRESSION IMPRESSION: Complex right ovarian mass is stable to slightly increased in size sincepelvic ultrasound dated 12/13/2011, most likely representing a dermoid. No evidence of ovarian torsion at this time; however, due to the presenceof the right ovarian mass there is increased risk for torsion. OB/GYNfollowup is recommended. Dr. Ro discussed the preliminary findings with Dr. Silva at 4:02 PM on06/25/2015. This report was approved by Ricki Ro M.D. on 06/25/2015 5:07 PM . I, Dr. RICKI BOLIVAR M.D. have personally reviewed and interpreted thisexamination/study. This report was electronically signed by RICKI BOLIVAR M.D. on06/25/2015 5:20 PM . Leopoldo Hollis MD US ORDERABLES * US PELVIS COMPLETE (06/25/2015 4:02 PM CDT) Anatomical Region Laterality Modality Pelvis Other Impressions 06/25/2015 5:20 PM CDT IMPRESSION: Complex right ovarian mass is stable to slightly increased in size since pelvic ultrasound dated 12/13/2011, most likely representing a dermoid. No evidence of ovarian torsion at this time; however, due to the presence of the right ovarian mass there is increased risk for torsion. IN [employer]BER followup is recommended. Dr. Ro discussed the preliminary findings with Dr. Silva at 4:02 PM on 06/25/2015. This report was approved ??by Ricki Ro M.D. ?? on 06/25/2015 5:[address] RICKI Clarke M.D. have personally reviewed and interpreted this examination/study. This report was electronically signed by RICKI BOLIVAR M.D. ??on 06/25/2015 5:20 PM . Narrative 06/25/2015 5:20 PM CDT EXAMINATION: Transabdominal and transvaginal ultrasound. HISTORY: 26-year-old female with pelvic pain, known right ovarian mass. COMPARISON: Pelvic ultrasound dated 12/13/2011, CT of the abdomen and pelvis dated 05/20/2015. FINDINGS: Transabdominal: An intrauterine device is present. Transvaginal: Uterus: 7.5 x 3.1 x 3.7 cm Right ovary: The right ovarian parenchyma is compressed by mass effect and is difficult to measure. Left ovary: 3.9 x 2.1 x 3.6 cm A right ovarian complex mass is stable to slightly increased in size since pelvic ultrasound dated 12/13/2011 and measures 6.8 x 5.5 x 6.0 cm, previously measuring 6.2 x 6.0 x 4.9 cm. The mass has mild internal echoes, scattered peripheral calcification, and an echogenic nodule with posterior acoustic shadowing measuring 2.2 x 2.5 x 1.9 cm. The endometrial bilayer thickness is difficult to measure due to presence of intrauterine device. There is no evidence of ovarian torsion. There is no free pelvic fluid. Procedure Note Ricki Bolivar MD - 02/09/2018 EXAMINATION: Transabdominal and transvaginal ultrasound. HISTORY: 26-year-old female with pelvic pain, known right ovarian mass. COMPARISON: Pelvic ultrasound dated 12/13/2011, CT of the abdomen and pelvisdated 05/20/2015. FINDINGS: Transabdominal: An intrauterine device is present. Transvaginal: Uterus: 7.5 x 3.1 x 3.7 cm Right ovary: The right ovarian parenchyma is compressed by mass effect andis difficult to measure. Left ovary: 3.9 x 2.1 x 3.6 cm A right ovarian complex mass is stable to slightly increased in size sincepelvic ultrasound dated 12/13/2011 and measures 6.8 x 5.5 x 6.0 cm,previously measuring 6.2 x 6.0 x 4.9 cm. The mass has mild internalechoes, scattered peripheral calcification, and an echogenic nodule with posterior acoustic shadowing measuring 2.2 x2.5 x 1.9 cm. The endometrial bilayer thickness is difficult to measuredue to presence of intrauterine device. There is no evidence of ovariantorsion. There is no free pelvic fluid. IMPRESSION IMPRESSION: Complex right ovarian mass is stable to slightly increased in size sincepelvic ultrasound dated 12/13/2011, most likely representing a dermoid. No evidence of ovarian torsion at this time; however, due to the presenceof the right ovarian mass there is increased risk for torsion. OB/GYNfollowup is recommended. Dr. Ro discussed the preliminary findings with Dr. Silva at 4:02 PM on06/25/2015. This report was approved by Ricki Ro M.D. on 06/25/2015 5:07 PM . I, Dr. RICKI BOLIVAR M.D. have personally reviewed and interpreted thisexamination/study. This report was electronically signed by RICKI BOLIVAR M.D. on06/25/2015 5:20 PM . Leopoldo Hollis MD US ORDERABLES * HCG URINE QUALITATIVE - POCT (IP) [facility] (06/25/2015 3:20 PM CDT) Only the most recent of5 resultswithin the time period is included. Test Urine negative REPLACED BY [facility] Urine specimen (specimen) 06/25/2015 3:20 PM CDT Leopoldo Hollis MD LAB - POINT OF CARE ORDERABLES REPLACED BY [facility] * BASIC METABOLIC PANEL (CALCIUM TOTAL) (06/25/2015 2:44 PM CDT) Only the most recent of3 resultswithin the time period is included. BUN 11 7 - 26 mg/dL [facility] Creatinine 0.9 0.6 - 1.2 mg/dL [facility] Sodium 141 136 - 145 mmol/L [facility] Potassium 3.7 3.5 - 4.5 mmol/L [facility] Chloride 106 98 - 107 mmol/L [facility] CO2 26 22 - 29 mmol/L [facility] Glucose 94 70 - 115 mg/dL [facility] Calcium 8.5 8.4 - 10.2 mg/dL [facility] Anion Gap 13 8 - 18 [facility] BUN/Creatinine Ratio 12 7 - 23 [facility] Osmolality Calculated 276 270 - 300 mOsm/kg [facility] eGFR >60 >60 mL/min/1.7 3 m2 [facility] Blood specimen (specimen) BLOOD SPECIMEN / Unknown 06/25/2015 2:44 PM CDT 06/25/2015 3:23 PM CDT Leopoldo Hollis MD LAB - CHEMISTRY [facility] [address] [phone] * (ABNORMAL) HEPATIC FUNCTION PANEL (06/25/2015 2:44 PM CDT) Protein Total 7.3 6.0 - 8.3 g/dL [facility] Albumin 3.4 3.4 - 5.0 g/dL [facility] Bilirubin Total 0.4 0.2 - 1.2 mg/dL [facility] Bilirubin Conjugated 0.2 0.0 - 0.5 mg/dL [facility] Bilirubin Unconjugated 0.2 Unconjugated Bilirubin is a calculated value: Reference ranges have not been established. mg/dL [facility] Alkaline Phosphatase 66 40 - 150 Units/L [facility] ALT 14 0 - 55 Units/L [facility] AST 16 5 - 34 Units/L [facility] Albumin/Globulin Ratio 0.9(L) 1.1 - 2.3 [facility] Blood specimen (specimen) BLOOD SPECIMEN / Unknown 06/25/2015 2:44 PM CDT 06/25/2015 3:23 PM CDT Leopoldo Hollis MD LAB - CHEMISTRY [facility] [address] [phone] * (ABNORMAL) BLOOD GASES CORD VENOUS (05/19/2013 3:06 AM CDT) pH Cord Venous 7.17(L) 7.28 - 7.40 pH 05/19/2013 3:45 AM CDT [facility] pCO2 Cord Venous 63(H) 35 - 45 mm hg 05/19/2013 3:45 AM CDT [facility] pO2 Cord Venous 13(L) 22 - 33 mm hg 05/19/2013 3:45 AM CDT [facility] HCO3 Cord Venous 23 22 - 24 mmol/L 05/19/2013 3:45 AM CDT [facility] BE Cord Venous -7.0 mmol/L 05/19/2013 3:45 AM CDT [facility] O2 Saturation Cord Venous <15 % 05/19/2013 3:45 AM CDT [facility] Mode Unknown 05/19/2013 3:45 AM CDT [facility] Arden's Test N/A 05/19/2013 3:45 AM [facility] Sample Site Other 05/19/2013 3:45 AM [facility] Sample Type Cord Blood Venous 05/19/2013 3:45 AM T [facility] Basket Machine Operator ID [id number] 05/19/2013 3:45 AM [facility] Notified Who del in person to Lab/Del 05/19/2013 3:45 AM [facility] Notification Time 05/19/2013 03:44 05/19/2013 3:45 AM [facility] Notified By svetlana fiscal clerk 05/19/2013 3:45 AM [facility] Blood specimen (specimen) CORD BLOOD SPECIMEN / Unknown 05/19/2013 3:06 AM CDT 05/19/2013 3:06 AM CDT Sean Arauz MD LAB - BLOOD GASES OR DERABLES [facility] [address] [place] [address] * (ABNORMAL) BLOOD GASES CORD ART (05/19/2013 3:06 AM CDT) pH Cord Arterial 7.13(L) 7.20 - 7.34 pH 05/19/2013 3:43 AM CDT [facility] pCO2 Cord Arterial 77(HH) 45 - 55 mm hg 05/19/2013 3:43 AM CDT [facility] pO2 Cord Arterial <5(LL) 12 - 25 mm hg 05/19/2013 3:43 AM CDT [facility] HCO3 Cord Arterial 25(H) 22 - 24 mmol/L 05/19/2013 3:43 AM CDT [facility] BE Cord Arterial -5.9 mmol/L 05/19/20 13 3:43 AM CDT [facility] Mode Unknown 05/19/2013 3:43 AM CDT [facility] Arden's Test N/A 05/19/2013 3:43 AM CDT [facility] Sample Site Other 05/19/2013 3:43 AM T [facility] Sample Type Cord blood Arterial 05/19/2013 3:43 AM CDT [facility] Basket Machine Operator ID [id number] 05/19/2013 3:43 AM T [facility] Notified Who del in person to Lab/Del 05/19/2013 3:43 AM [facility] Notification Time 05/19/2013 03:43 05/19/2013 3:43 AM T [facility] Notified By lw fiscal clerk 05/19/2013 3:43 AM T [facility] Blood specimen (specimen) CORD BLOOD SPECIMEN / Unknown 05/19/2013 3:06 AM CDT 05/19/2013 3:06 AM CDT Sean Arauz MD LAB - BLOOD GASES OR DERABLES Performing Organization Address City/State/[facility] Co de Phone Number [facility] [address] [phone] * ANESTHESIA BLOCK PERF (05/19/2013 1:24 AM CDT) Narrative Radha Espitia CRNA - 05/19/2013 1:24 AM CDT Radha Espitia CRNA ? 05/19/2013 ??1:24 AM Epidural . ?? Location: L4-5 Preanesthetic Checklist Completed: patient identified, IV checked, site marked, risks and benefits discussed, surgical consent, monitors and equipment checked, pre-op evaluation, timeout performed and questions answered / anesthesia plan accepted ?? Epidural . ?? Position for procedure: ??sitting Prep: ??sterile gloves, cap, mask, sterile field established, kit and supplies assembled on sterile field and skin prepped with Betadine. ?? Needle: ??18 G Tuohy ?? Needle length: 10cm ?? Needle insertion depth: 8 cmLocation: L4-5 Injection technique: loss of resistance Catheter at skin depth: 12 cm Additional response: ??Test dose 5cc 1.5% lido with epi neg, -csf,-heme, bolus 1% lido given, pt getting comfortable, attempt 1 Response to Block: ?? Anesthesia level achieved: ??T10 Start time: 05/18/2013 11:47 PM End time: 05/19/2013 11:49 PM Injection made incrementally with aspirations every 5 mL. Anesthesia level achieved: ??[id number] response: ??Test dose 5cc 1.5% lido with epi neg, -csf,-heme, bolus 1% lido given, pt getting comfortable, attempt 1 Patient Care after Block: Instructions to patient: ??FLIGHT RESERVATIONS MANAGER use, expected sensory deficits, NPO recommendations and activity restrictions Patient position: left lateral decubitus Additional Notes: Epidural . ?? Location: L3-4 Preanesthetic Checklist Completed: patient identified, IV checked, site marked, risks and benefits discussed, surgical consent, monitors and equipment checked, pre-op evaluation, timeout performed and questions answered / anesthesia plan accepted ?? Epidural . ?? Position for procedure: ??sitting Prep: ??sterile gloves, cap, mask, sterile field established, kit and supplies assembled on sterile field and skin prepped with Betadine. ?? Needle: ??18 G Tuohy ?? Needle length: 10cm ?? Needle insertion depth: 8 cmLocation: L3-4 Injection technique: loss of resistance Catheter at skin depth: 14 cm Additional response: ??Test dose 5cc 1.5% lido with epi neg, -csf,-heme, bolus 1% lido given, pt getting comfortable, attempt 1 Response to Block: ?? Start time: 05/19/2013 1:23 AM End time: 05/19/2013 1:25 AM Injection made incrementally with aspirations every 5 mL. Additional response: ??Test dose 5cc 1.5% lido with epi neg, -csf,-heme, bolus 1% lido given, pt getting comfortable, attempt 1 Patient Care after Block: Instructions to patient: ??FLIGHT RESERVATIONS MANAGER use, expected sensory deficits, NPO recommendations and activity restrictions Patient position: left lateral decubitus Additional Notes: Procedure Note Radha Espitia, MANAGER RADIO - 05/18/2013 11:59 PM CDT Epidural . Location: L4-5 Preanesthetic Checklist Completed: patient identified, IV checked, site marked, risks and benefitsdiscussed, surgical consent, monitors and equipment checked, pre-opevaluation, timeout performed and questions answered / anesthesia planaccepted Epidural . Position for procedure: sitting Prep: sterile gloves, cap, mask, sterile field established, kit andsupplies assembled on sterile field and skin prepped with Betadine. Needle: 18 G Tuohy Needle length: 10cm Needle insertion depth: 8 cmLocation: L4-5 Injection technique: loss of resistance Catheter at skin depth: 12 cm Additional response: Test dose 5cc 1.5% lido with epi neg, -csf,-heme,bolus 1% lido given, pt getting comfortable, attempt 1 Response to Block: Anesthesia level achieved: T10 Start time: 05/18/2013 11:47 PM End time: 05/19/2013 11:49 PM Injection made incrementally with aspirations every 5 mL. Anesthesia level achieved: [id number] response: Test dose 5cc 1.5%lido with epi neg, -csf,-heme, bolus 1% lido given, pt gettingcomfortable, attempt 1 Patient Care after Block: Instructions to patient: FLIGHT RESERVATIONS MANAGER use, expected sensory deficits, NPOrecommendations and activity restrictions Patient position: left lateral decubitus Additional Notes: Epidural . Location: L3-4 Preanesthetic Checklist Completed: patient identified, IV checked, site marked, risks and benefitsdiscussed, surgical consent, monitors and equipment checked, pre-opevaluation, timeout performed and questions answered / anesthesia planaccepted Epidural . Position for procedure: sitting Prep: sterile gloves, cap, mask, sterile field established, kit andsupplies assembled on sterile field and skin prepped with Betadine. Needle: 18 G Tuohy Needle length: 10cm Needle insertion depth: 8 cmLocation: L3-4 Injection technique: loss of resistance Catheter at skin depth: 14 cm Additional response: Test dose 5cc 1.5% lido with epi neg, -csf,-heme,bolus 1% lido given, pt getting comfortable, attempt 1 Response to Block: Start time: 05/19/2013 1:23 AM End time: 05/19/2013 1:25 AM Injection made incrementally with aspirations every 5 mL. Additional response: Test dose 5cc 1.5% lido with epi neg, -csf,-heme,bolus 1% lido given, pt getting comfortable, attempt 1 Patient Care after Block: Instructions to patient: FLIGHT RESERVATIONS MANAGER use, expected sensory deficits, NPOrecommendations and activity restrictions Patient position: left lateral decubitus Additional Notes: Radha Espitia APRN-MANAGER RADIO GENERAL ANES THESIA ORDERABLES * ANESTHESIA BLOCK PERF (05/19/2013 1:24 AM CDT) Narrative Radha Espitia CRNA - 05/19/2013 1:24 AM CDT Radha Espitia CRNA ? 05/19/2013 ??1:24 AM Epidural . ?? Location: L4-5 Preanesthetic Checklist Completed: patient identified, IV checked, site marked, risks and benefits discussed, surgical consent, monitors and equipment checked, pre-op evaluation, timeout performed and questions answered / anesthesia plan accepted ?? Epidural . ?? Position for procedure: ??sitting Prep: ??sterile gloves, cap, mask, sterile field established, kit and supplies assembled on sterile field and skin prepped with Betadine. ?? Needle: ??18 G Tuohy ?? Needle length: 10cm ?? Needle insertion depth: 8 cmLocation: L4-5 Injection technique: loss of resistance Catheter at skin depth: 12 cm Additional response: ??Test dose 5cc 1.5% lido with epi neg, -csf,-heme, bolus 1% lido given, pt getting comfortable, attempt 1 Response to Block: ?? Anesthesia level achieved: ??T10 Start time: 05/18/2013 11:47 PM End time: 05/19/2013 11:49 PM Injection made incrementally with aspirations every 5 mL. Anesthesia level achieved: ??[id number] response: ??Test dose 5cc 1.5% lido with epi neg, -csf,-heme, bolus 1% lido given, pt getting comfortable, attempt 1 Patient Care after Block: Instructions to patient: ??FLIGHT RESERVATIONS MANAGER use, expected sensory deficits, NPO recommendations and activity restrictions Patient position: left lateral decubitus Additional Notes: Epidural . ?? Location: L3-4 Preanesthetic Checklist Completed: patient identified, IV checked, site marked, risks and benefits discussed, surgical consent, monitors and equipment checked, pre-op evaluation, timeout performed and questions answered / anesthesia plan accepted ?? Epidural . ?? Position for procedure: ??sitting Prep: ??sterile gloves, cap, mask, sterile field established, kit and supplies assembled on sterile field and skin prepped with Betadine. ?? Needle: ??18 G Tuohy ?? Needle length: 10cm ?? Needle insertion depth: 8 cmLocation: L3-4 Injection technique: loss of resistance Catheter at skin depth: 14 cm Additional response: ??Test dose 5cc 1.5% lido with epi neg, -csf,-heme, bolus 1% lido given, pt getting comfortable, attempt 1 Response to Block: ?? Start time: 05/19/2013 1:23 AM End time: 05/19/2013 1:25 AM Injection made incrementally with aspirations every 5 mL. Additional response: ??Test dose 5cc 1.5% lido with epi neg, -csf,-heme, bolus 1% lido given, pt getting comfortable, attempt 1 Patient Care after Block: Instructions to patient: ??FLIGHT RESERVATIONS MANAGER use, expected sensory deficits, NPO recommendations and activity restrictions Patient position: left lateral decubitus Additional Notes: Procedure Note Radha Espitia, MANAGER RADIO - 05/18/2013 11:59 PM CDT Epidural . Location: L4-5 Preanesthetic Checklist Completed: patient identified, IV checked, site marked, risks and benefitsdiscussed, surgical consent, monitors and equipment checked, pre-opevaluation, timeout performed and questions answered / anesthesia planaccepted Epidural . Position for procedure: sitting Prep: sterile gloves, cap, mask, sterile field established, kit andsupplies assembled on sterile field and skin prepped with Betadine. Needle: 18 G Tuohy Needle length: 10cm Needle insertion depth: 8 cmLocation: L4-5 Injection technique: loss of resistance Catheter at skin depth: 12 cm Additional response: Test dose 5cc 1.5% lido with epi neg, -csf,-heme,bolus 1% lido given, pt getting comfortable, attempt 1 Response to Block: Anesthesia level achieved: T10 Start time: 05/18/2013 11:47 PM End time: 05/19/2013 11:49 PM Injection made incrementally with aspirations every 5 mL. Anesthesia level achieved: [id number] response: Test dose 5cc 1.5%lido with epi neg, -csf,-heme, bolus 1% lido given, pt gettingcomfortable, attempt 1 Patient Care after Block: Instructions to patient: FLIGHT RESERVATIONS MANAGER use, expected sensory deficits, NPOrecommendations and activity restrictions Patient position: left lateral decubitus Additional Notes: Epidural . Location: L3-4 Preanesthetic Checklist Completed: patient identified, IV checked, site marked, risks and benefitsdiscussed, surgical consent, monitors and equipment checked, pre-opevaluation, timeout performed and questions answered / anesthesia planaccepted Epidural . Position for procedure: sitting Prep: sterile gloves, cap, mask, sterile field established, kit andsupplies assembled on sterile field and skin prepped with Betadine. Needle: 18 G Tuohy Needle length: 10cm Needle insertion depth: 8 cmLocation: L3-4 Injection technique: loss of resistance Catheter at skin depth: 14 cm Additional response: Test dose 5cc 1.5% lido with epi neg, -csf,-heme,bolus 1% lido given, pt getting comfortable, attempt 1 Response to Block: Start time: 05/19/2013 1:23 AM End time: 05/19/2013 1:25 AM Injection made incrementally with aspirations every 5 mL. Additional response: Test dose 5cc 1.5% lido with epi neg, -csf,-heme,bolus 1% lido given, pt getting comfortable, attempt 1 Patient Care after Block: Instructions to patient: FLIGHT RESERVATIONS MANAGER use, expected sensory deficits, NPOrecommendations and activity restrictions Patient position: left lateral decubitus Additional Notes: Radha Espitia APRN-MANAGER RADIO GENERAL ANES THESIA ORDERABLES * BLOOD TYPE VERIFICATION (05/16/2013 5:43 PM CDT) ABO O 05/16/2013 7:18 PM CDT [facility] Rh Type Positive 05/16/2013 7:18 PM CDT [facility] Miscellaneous samples (specimen) BLOOD SPECIMEN / Unknown Venipuncture / Unknown 05/16/2013 5:43 PM CDT 05/16/2013 6:02 PM CDT Jose Carnes MD LAB - BLOOD BANK ORDERABLES Performing Organization Address [facility] de Phone Number [facility] * (ABNORMAL) URINALYSIS MICROSCOPIC ONLY (05/16/2013 12:57 PM CDT) RBC UA 2-5 0-2, 2-5 # /hpf 05/16/2013 1:27 PM CDT [facility] WBC UA 5-10(A) 0-2, 2-5 # /hpf 05/16/2013 1:27 PM CDT [facility] Bacteria UA 2+(A) None Seen 05/16/2013 1:27 PM CDT [facility] Epithelial Cell UA 2-5 0-2, 2-5 05/16/2013 1:27 PM CDT [facility] Urine specimen (specimen) URINE SPECIMEN OBTAINED BY CLEAN CATCH PROCEDURE / Unknown 05/16/2013 12:57 PM CDT 05/16/2013 1:06 PM CDT Ariel Chiu MD LAB - URINALYSIS ORD ERABLES Performing Organization Address [facility] de Phone Number [facility] [address] [place] [address] * PROTEIN CREATININE RATIO URINE RANDOM PNL (05/16/2013 12:54 PM CDT) Only the most recent of2 resultswithin the time period is included. Protein Urine 20.8 mg/dL 05/16/2013 1:32 PM CDT [facility] Creatinine Urine 132.19 mg/dL 05/16/2013 1:32 PM CDT [facility] Protein/Creatin ine Ratio Urine 0.16 05/16/2013 1:32 PM CDT [facility] Urine specimen (specimen) URINE SPECIMEN OBTAINED BY CLEAN CATCH PROCEDURE / Unknown Collection / Unknown 05/16/2013 12:54 PM CDT 05/16/2013 1:06 PM CDT Ariel Chiu MD LAB - URINE CHEMISTR Y ORDERABLES Performing Organization Address [facility] Co de Phone Number [facility] [address] [place] [address] * (ABNORMAL) URIC ACID BLOOD (05/16/2013 12:54 PM CDT) Only the most recent of2 resultswithin the time period is included. Uric Acid 6.7(H) 2.5 - 6.2 mg/dL 05/16/2013 1:33 PM CDT [facility] Blood specimen (specimen) BLOOD SPECIMEN / Unknown Venipuncture / Unknown 05/16/2013 12:54 PM CDT 05/16/2013 1:06 PM CDT Ariel Chiu MD LAB - CHEMISTRY CATERINA DAVIS [facility] [address] [place] [id number] * LDH BLOOD (05/16/2013 12:54 PM CDT) Only the most recent of2 resultswithin the time period is included. Pathologist [facility] LDH 173 100 - 200 U/L 05/16/2013 1:33 PM CDT [facility] Blood specimen (specimen) BLOOD SPECIMEN / Unknown Venipuncture / Unknown 05/16/2013 12:54 PM CDT 05/16/2013 1:06 PM CDT Ariel Chiu MD LAB - CHEMISTRY CATERINA DAVIS [facility] [address] [place] [id number] * IMAGING/RADIOLOGY/XRAY RESULTS ORDER (05/12/2013 10:14 AM CDT) Only the most recent of2 resultswithin the time period is included. Anatomical Region Laterality Modality Other Narrative 05/12/2013 10:14 AM CDT Procedure Note Document, Scanned - 05/12/2013 10:14 AM CDT Scanned Document IMAGING * BIOPHYSICAL PROFILE W NST (05/06/2013 8:39 AM CDT) Only the most recent of4 resultswithin the time period is included. Anatomical Region Laterality Modality Other 05/06/2013 8:39 AM CDT Narrative 05/06/2013 9:41 AM CDT ? [facility] ?PHONE: ??FAX: Pat. Name: ?ELYSSA DOSS. No: ?[id number] Study Date: ?? 05/06/2013 ??8:39am , Age: ? 1985, 28 Pregnancies: ?? 2, Para 0, Ab 1 LMP: ?08/30/2012 GA by LMP: ?35w4d GA by 1st: ?35w4d GA Selected: ??35w4d (LMP) TYLER: ?06/06/2013 Referring MD: ALEXANDRA ROMERO MD Licensed Audiologist: ??Margie Nunez RDMS Hist/Ind: ? Mild Preeclampsia, ?Obesity Heart Rate: 141.0 bpm Amniotic Fluid Index: 08.4 (07.8-24.9) Q1: 3.4 ?? Q3: 2.3 ?? Q4: 2.7 ?? Biophysical Profile: 08/21 Breathin ?? Tone: 2 ?? NST: 2 Movement: ??2 ?? AFV: ??2 CLINICAL SUMMARY Study Number: 6 (2/) DOPPLER STUDIES: ?? The umbilical artery Doppler S/D ratio is 3.7 , which is elevated for gestational age. ?? The ductus venosus is visualized and appears to have a normal wave form. ?? IMPRESSION: ?? Single, live, IUP at 35w4d Reassuring BPP Increased UA resistance Normal DV waveform RECOMMEND: ?? Continue 2x week NST and 1x week BPP/DOP/LISA Thank you for allowing us the opportunity to care for your patient. Teri Arauz MD <Electronic Signature> ??05/06/2013 09:42am Revised Alexandra Romero MD [facility] ORDERABLES * SONOGRAM - LIMITED (05/06/2013 8:10 AM CDT) Only the most recent of3 resultswithin the time period is included. Anatomical Region Laterality Modality Other 05/06/2013 8:10 AM CDT Narrative 05/06/2013 9:40 AM CDT ? [facility] ?PHONE: ??FAX: Pat. Name: ?ELSYSA DOSS Pat. No: ?[id number] Study Date: ?? 05/06/2013 ??8:10am , Age: ? 1985, 28 Pregnancies: ?? 2, Para 0, Ab 1 LMP: ?08/30/2012 GA by LMP: ?35w4d GA by 1st: ?35w4d GA Selected: ??35w4d (LMP) TYLER: ?06/06/2013 Referring MD: ALEXANDRA ROMERO MD Licensed Audiologist: ??Margie Nunez RDMS Hist/Ind: ? Mild Preeclampsia, ?Obesity Heart Rate: 141.0 bpm Amniotic Fluid Index: 08.4 (07.8-24.9) CLINICAL SUMMARY Study Number: 6 (1) A cohen fetus is identified in cephalic presentation. ??The placenta is posterior, Grade 2. ??The amniotic fluid volume is within normal limits. IMPRESSION: ?? Single, live, IUP at 35w4d, normal LISA RECOMMEND: ?? Continue 2x week NST and 1x week BPP/DOP/LISA Thank you for allowing us the opportunity to care for your patient. Teri Arauz MD <Electronic Signature> ??05/06/2013 09:40am Alexandra Romero MD [facility] ORDERABLES * (ABNORMAL) PROTEIN URINE TIMED QUANTITATIVE (04/25/2013 7:30 PM CDT) Volume 24 Hour Urine 1,400 mL 04/25/2013 7:45 PM CDT [facility] Collection Time Hours 24 hrs 04/25/2013 7:45 PM CDT [facility] Protein 24 Hour Urine 374(H) 42 - 225 mg/24hr 04/25/2013 7:45 PM CDT [facility] Protein Urine 26.7 mg/dL 04/25/2013 7:45 PM CDT [facility] Urine specimen (specimen) TIMED URINE SPECIMEN / Unknown Collection / Unknown 04/25/2013 7:30 PM CDT 04/25/2013 7:36 PM CDT Alexandra Romero MD LAB - URINE CHEMI STRY ORDERABLES Performing Organization Address [facility] de Phone Number [facility] [address] [place], [place] [id number] * CREATININE URINE TIMED (04/25/2013 7:30 PM CDT) Volume 24 Hour Urine 1,400 mL 04/25/2013 7:44 PM CDT [facility] Collection Time Hours 24 hrs 04/25/2013 7:44 PM CDT [facility] Creatinine Urine 102.41 mg/dL 04/25/2013 7:44 PM CDT [facility] Creatinine 24 Hour Urine 1,434 800 - 1,800 mg/24hr 04/25/2013 7:44 PM CDT [facility] Urine specimen (specimen) URINE SPECIMEN COLLECTION, 24 HOURS / Unknown Collection / Unknown 04/25/2013 7:30 PM CDT 04/25/2013 7:37 PM CDT Arnoldo Corrales MD LAB - URINE CHEMISTR Y ORDERABLES Performing Organization Address [facility] Co de Phone Number [facility] [address] [place] [address] * SONOGRAM - COMPLETE (04/25/2013 1:38 PM CDT) Only the most recent of2 resultswithin the time period is included. Anatomical Region Laterality Modality Other 04/25/2013 1:38 PM CDT Narrative 04/25/2013 3:47 PM CDT ? [facility] ?PHONE: ??FAX: Pat. Name: ?ELYSSA DOSS Pat. No: ?[id number] Study Date: ?? 04/25/2013 ??1:50pm , Age: ? 1985, 28 Pregnancies: ?? 2, Para 0, Ab 1 LMP: ?08/30/2012 GA by LMP: ?34w0d GA by 1st: ?34w0d GA Selected: ??34w0d (LMP) TYLER: ?06/06/2013 Referring MD: ALEXANDRA ROMERO MD Licensed Audiologist: ??Corine Yeager RDMS Hist/Ind: ? Hypertension Heart Rate: 145.0 bpm Amniotic Fluid Index: 13.2 (08.1-24.8) CLINICAL SUMMARY Study Number: 3 (12/14) A cohen fetus is identified in cephalic presentation. ??The placenta is posterior, Grade 2. ??The amniotic fluid volume is within normal limits. ??Limited resolution study IMPRESSION: ?? Single, live, IUP at 34w0d, normal LISA RECOMMEND: Suggest twice weekly NSTs, weekly BPP/LISA/dopplers. Thank you for allowing us the opportunity to care for your patient. Teri Arauz MD <Electronic Signature> ??04/25/2013 03:47pm Alexandra Romero MD [facility] ORDERABLES * (ABNORMAL) URINALYSIS ROUTINE W/REFLEX TO CULTURE (04/24/2013 2:56 PM CDT) Only the most recent of2 resultswithin the time period is included. Color UA Yellow Straw, Yellow, Dark Yellow 04/24/2013 3:25 PM CDT [facility] Clarity UA Clear 04/24/2013 3:25 PM CDT [facility] Specific Wirtz UA 1.015 1.005 - 1.030 04/24/2013 3:25 PM CDT [facility] pH UA 7.0 5.0 - 8.0 04/24/2013 3:25 PM CDT [facility] Protein UA Negative Negative 04/24/2013 3:25 PM CDT [facility] Blood UA Negative Negative 04/24/2013 3:25 PM CDT [facility] Leukocyte UA Negative Negative 04/24/2013 3:25 PM CDT [facility] Nitrite UA Negative Negative 04/24/2013 3:25 PM CDT [facility] Glucose UA Negative Negative 04/24/2013 3:25 PM CDT [facility] Ketone UA Trace(A) Negative 04/24/2013 3:25 PM CDT [facility] Bilirubin UA Negative Negative 04/24/2013 3:25 PM CDT [facility] Urobilinogen UA 0.2 0.1 - 1.0 EU/dL 04/24/2013 3:25 PM CDT [facility] Reflex Status Culture not indicated 04/24/2013 3:25 PM CDT [facility] Urine specimen (specimen) URINE SPECIMEN OBTAINED BY CLEAN CATCH PROCEDURE / Unknown Venipuncture / Unknown 04/24/2013 2:56 PM CDT 04/24/2013 3:03 PM CDT Yanira Butler MD LAB - URINALYSIS ORD ERABLES Performing Organization Address City/State/[facility] Co de Phone Number [facility] [address] [place] [address] * US OB < 14 WKS W/TRANSVAG AND DOPPLER (10/19/2012 5:21 PM RADIAL SAW OPERATOR) Anatomical Region Laterality Modality Ultrasound 10/19/2012 5:40 PM RADIAL SAW OPERATOR Impressions 10/19/2012 5:40 PM RADIAL SAW OPERATOR Early living single intrauterine . Large complex hemorrhagic right ovarian cyst Narrative 10/19/2012 5:40 PM RADIAL SAW OPERATOR Ultrasound uterus less than 14 weeks with transvaginal Clinical Indication: patient with vaginal bleeding Technique: Multiple longitudinal and transverse grayscale images of the pelvis were obtained using both the transabdominal and endovaginal probes. Findings: There is an early living single intrauterine . The crown-rump length measures 1.01 cm which correlates to an estimated gestational age of 7 weeks 1 day +/- 1 week. A yolk sac is identified. heart motion is detected 150 beats per minute. There is a large complex hemorrhagic right ovarian cyst. The left ovary is normal. There is no free fluid in the cul-de-sac. Procedure Note Elias Pacheco MD - 10/19/2012 Ultrasound uterus less than 14 weeks with transvaginal Clinical Indication: patient with vaginal bleeding Technique: Multiple longitudinal and transverse grayscale images of the pelvis were obtained using both the transabdominal and endovaginal probes. Findings: There is an early living single intrauterine . The crown-rump length measures 1.01 cm which correlates to an estimated gestational age of 7 weeks 1 day +/- 1 week. A yolk sac is identified. heart motion is detected 150 beats per minute. There is a large complex hemorrhagic right ovarian cyst. The left ovary is normal. There is no free fluid in the cul-de-sac. IMPRESSION Early living single intrauterine . Large complex hemorrhagic right ovarian cyst Kemi Erickson APRNTIANA US ORDERABLES * CHLAMYDIA + GC AMPLIFIED PROBE (10/19/2012 4:45 PM RADIAL SAW OPERATOR) [facility] GC Amplified Probe Negative [facility] Chlamydia trachomatis Amplified Probe Negative [facility] Comment Amplified Probe [facility] Comment: Results based on detection/no detection of RNA by amplified method. Miscellaneous samples (specimen) PART OF UTERINE CERVIX / Unknown 10/19/2012 4:45 PM RADIAL SAW OPERATOR 10/19/2012 4:59 PM RADIAL SAW OPERATOR Narrative [facility] - 10/21/2012 10:16 PM RADIAL SAW OPERATOR Performed By [facility] - [facility] Kemi Erickson APRNDANA-[facility] - MICROBIOLOGY O RDERABLES Performing Organization Address [facility] Co de Phone Number [facility] [address] [place] [id number] * WET PREP SMEAR (10/19/2012 4:45 PM RADIAL SAW OPERATOR) [facility] Trichomonas Rapid Test None Detected None Detected [facility] Miscellaneous samples (specimen) PART OF UTERINE CERVIX / Unknown 10/19/2012 4:45 PM RADIAL SAW OPERATOR 10/19/2012 4:59 PM RADIAL SAW OPERATOR Kemi Erickson [facility] - MICROBIOLOGY O RDERABLES Performing Organization Address [facility] de Phone Number [facility] [address] [place] [address] * (ABNORMAL) HCG BETA BLOOD QUANTITATIVE (10/19/2012 3:27 PM RADIAL SAW OPERATOR) [facility] HCG Quant Serum 08060(H) 0.0 - 10.0 mIU/mL [facility] Blood specimen (specimen) BLOOD SPECIMEN / Unknown 10/19/2012 3:27 PM RADIAL SAW OPERATOR 10/19/2012 3:45 PM RADIAL SAW OPERATOR Narrative [facility] - 10/19/2012 4:19 PM RADIAL SAW OPERATOR Perform if Urine HCG is Positive Ricki Zamudio MD LAB - CHEMISTRY CATERINA DAVIS [facility] [address] [place] [address] * CYTOLOGY NON-TIME SIGNAL WIRER PANEL (12/14/2011 9:52 AM RADIAL SAW OPERATOR) Only the most recent of2 resultswithin the time period is included. Result CASE NUMBER [id number] Comment: ORDERING PHYSICIAN ??RICKI CALLE SPECIMEN TYPE ?Body Fluid-rt ovarian cyst Date ? 12/15/2011 Physician ?Dr. Calle Specimen Adequacy ?Satisfactory for evaluation. Cell Pathology ? Granular debris and rare macrophages are seen, consistent with cyst contents. Snomed. ?12/15/2011 1318 <1> Pathologist ?Jesse Minor MD CPT code ? 73750 Gross Description ?Cloudy MISCELLANEOUS SAMPLES / Unknown 12/14/2011 9:52 AM RADIAL SAW OPERATOR 12/15/2011 10:54 AM RADIAL SAW OPERATOR Historical Provider LAB - PATHOLOGY/C YTOLOGY ORDERABLES * GROSS + MICRO EXAM (12/14/2011 12:00 AM RADIAL SAW OPERATOR) Only the most recent of2 resultswithin the time period is included. Result CASE NUMBER [id number] Comment: ORDERING PHYSICIAN ??GIOVANNAFebruary SPECIMEN TYPE ?Ovarian Cyst-rt ovarian cyst fluid Date ? 12/14/2011 Physician ?Frankie Dumas Gross Description ? The specimen is received in a single container labeled, Romario, Elyssa, and right ovarian cyst fluid for cytology and consists of approximately 30 mL of red, yellow, watery fluid ??submitted for cell block in a single cassette. LL/na Microscopic Exam ? Sections reveal granular debris and rare, a few benign epithelioid cells and macrophages . Malignancy is not seen. The histology is consistent with cyst contents. GC/leida Diagnosis ? I. ? Right ovarian cyst fluid, cell block -- ? Consistent with cyst contents -- ? No evidence of malignancy. GC/leida Financial Institution Manager ? leida Pathologist ?Jesse Minor MD CPT code ? 85209 MISCELLANEOUS SAMPLE S / Unknown 12/14/2011 12/14/2011 10:53 AM RADIAL SAW OPERATOR Historical Provider LAB - PATHOLOGY/C YTOLOGY ORDERABLES * US TRANSVAG W DOPPLER (12/13/2011 6:58 AM RADIAL SAW OPERATOR) Anatomical Region Laterality Modality Ultrasound 12/13/2011 7:45 AM RADIAL SAW OPERATOR Impressions 12/13/2011 7:52 AM RADIAL SAW OPERATOR An avascular complex right adnexal structure with moving debris, and the right ovary is not seen. Findings are suspicious for right ovarian torsion and rupture. Veriphy ??message Id: [id number] Narrative 12/13/2011 7:52 AM RADIAL SAW OPERATOR Exam: Transvaginal pelvic ultrasound with Doppler Date: 12/13/2011 History: Right pelvic pain. Negative test. LMP 11/28/2011. Recent outside CT suspicious for right ovarian torsion. Findings: Neither the images nor the report from the prior outside study are available for comparison or correlation. The uterus measures 6.0 x 2.8 cm transvaginally. The endometrial stripe measures up to 1 cm in diameter. In the right adnexal region a complex hypoechoic structure with moving debris measuring 6.9 x 5.3 cm is seen. No Doppler flow is detected in the structure. The right ovary is not identified. The left ovary measures 2.7 x 3.7 cm and contains cysts measuring up to 13 mm in diameter. Flow is confirmed to the left ovary. Procedure Note Jon Khan MD - 12/13/2011 Exam: Transvaginal pelvic ultrasound with Doppler Date: 12/13/2011 History: Right pelvic pain. Negative test. LMP 11/28/2011. Recent outside CT suspicious for right ovarian torsion. Findings: Neither the images nor the report from the prior outside study are available for comparison or correlation. The uterus measures 6.0 x 2.8 cm transvaginally. The endometrial stripe measures up to 1 cm in diameter. In the right adnexal region a complex hypoechoic structure with moving debris measuring 6.9 x 5.3 cm is seen. No Doppler flow is detected in the structure. The right ovary is not identified. The left ovary measures 2.7 x 3.7 cm and contains cysts measuring up to 13 mm in diameter. Flow is confirmed to the left ovary. IMPRESSION An avascular complex right adnexal structure with moving debris, and the right ovary is not seen. Findings are suspicious for right ovarian torsion and rupture. [facility] message Id: [id number] Renée Macdonald DO US ORDERABLES * HCG BLOOD QUALITATIVE (12/13/2011 5:20 AM RADIAL SAW OPERATOR) HCG Qual Serum Negative SEE BELOW [facility] Comment: Normal, Negative ? Pos, Sensitivity ? 25 MIU/ML Blood specimen (specimen) BLOOD SPECIMEN / Unknown 12/13/2011 5:20 AM RADIAL SAW OPERATOR 12/13/2011 5:56 AM RADIAL SAW OPERATOR Renée Macdonald DO LAB - CHEMISTRY CATERINA DAVIS [facility] [address] [place] [address] Care Teams Automatic Lathe Setter Relationship Specialty Start Date End Date Pilar Gunn MD [address] [address] PCP - General Internal Medicine 06/25/15 Ismael Spaulding, RN Language Therapist 06/28/15
--- OUTSIDE RECORDS SUMMARY | 2024-12-09 08:47 | XMS_ITS | Referral Summary ---
Author Organization [facility] Address [address] [place] [address] Care Team Providers Care Bufferer Name Role Phone Pilar Gunn MD Primary Care Provider [phone] Ismael Spaulding RN Unavailable [phone] Source Comments [facility],non-owned Affiliates and Associated Physician Practices is amultiple site organization consisting of ambulatory clinics and hospital sitesin [place], [place] and [place]. This disclosure is being madepursuant to the Care Everywhere program and may not contain all information available regarding this patient. Last updated 18.[facility] Allergies No known active allergies Medications * Be aware that medications may not be up to date on this document. Alwaysverify current medications with the patient. Medication Sig Dispensed Refills Start Date End Date Status atenolol (TENORMIN) 100 MG tablet 07/27/2021 Active topiramate (TOPAMAX) 25 MG tablet 07/27/2021 Active valACYclovir (VALTREX) 1 GM tablet 08/04/2021 Active Active Problems Patient Care Coordination No te Formatting of this note migh t be different from the original. NOP CC 2014 Problem Noted Date Diagnosed Date Pelvic adhesions [...] Mass Index 40.77 08/12/2021 10:14 AM CDT Functional Status Functional Status Response Date of [...] person have difficulty concentrating/remembering/making decisions? No 06/26/2015 Plan of Treatment Not on file Procedures Procedure Name Priority Date/Time Associated Diagnosis Comments PAP IG LB+HPV APTIMA Routine 08/12/2021 11:19 AM CDT Well woman exam from Last 3 Months or Most Recently Relevant to Health Maintenance Results * PAP IG LB+HPV APTIMA (08/12/2021 11:19 AM CDT) Diagnosis [facility] INSURANCE BILL Comment:NEGATIVE FOR INTRAEP ITHELIAL LESION OR MALIGNANCY. Specimen Adequacy [facility] INSURANCE BILL Comment:Satisfactory for margie luation. No endocervical component is identified. Clinician Provided ICD10 [facility] INSURANCE BILL Comment: Z01.419 N85.2 Performed by [facility] INSURANCE BILL Comment:Helen Interiano, Cyto technologist (ASCP) Comment . [facility] INSURANCE BILL Note [facility] INSURANCE BILL Comment: The Pap smear is a screening test designed to aid in the detection of premalignant and malignant conditions of the uterine cervix. ??It is not a diagnostic procedure and should not be used as the sole means of detecting cervical cancer. ??Both false-positive and false-negative reports do occur. ? . IGL[facility] CPT Code Automation [facility] INSURANCE BILL Comment: This liquid based ThinPrep(R) pap test was screened with the use of an image guided system. Human papillomavirus Aptima Negative Negative [facility] INSURANCE BILL Comment: This nucleic acid amplification test detects fourteen high-risk HPV types (16,18,31,33,35,39,45,51,52,56,58,59,66,68) without differentiation. Pathology/Cytolog y PART OF UTERINE CERVIX / Unknown 08/12/2021 11:19 AM CDT 08/15/2021 Narrative [facility] INSURANCE BILL - 08/16/2021 10:10 AM CDT No. of containers..01 ThinPrep Vial Resulting Agency Comment Lab Testing performed at: [address] ??[facility] [id number] Jose Rodriguez MD LAB - PATHOLOGY/CYT OLOGY ORDERABLES [facility] INSURANCE BILL [address] [address] from Last 3 Months or Most Recently Relevant to Health Maintenance Advance Directives * Full Code (Latest Code Status on File) Date Activated Date Inactivated Comments 06/26/2015 5:11 AM 06/28/2015 3:56 PM * Full Code Date Activated Date Inactivated Comments 06/26/2015 5:11 AM 06/26/2015 5:11 AM * FULL RESUSCITATION Date Activated Date Inactivated Comments 05/16/2013 2:45 PM 05/22/2013 1:29 PM * FULL RESUSCITATION Date Activated Date Inactivated Comments 12/14/2011 11:45 AM 12/16/2011 3:47 AM * FULL RESUSCITATION Date Activated Date Inactivated Comments 12/13/2011 8:29 AM 12/14/2011 11:45 AM Care Teams Bufferer Relationship Specialty Start Date End Date Pilar Gunn MD [address] [address] PCP - General Internal Medicine 06/25/15 Ismael Spaulding RN Bin Operator 06/28/15
--- OUTSIDE RECORDS SUMMARY | 2024-12-09 08:47 | XMS_ITS | Clinical Summary ---
Author Organization [facility] Address [address] [facility] [place] [address] Care Team Providers Care Precision Jig Grinder Name Role Phone Pilar Gunn MD Primary Care Provider [phone] Ismael Spaulding RN Unavailable [phone] Source Comments [facility],non-owned Affiliates and Associated Physician Practices is amultiple site organization consisting of ambulatory clinics and hospital sitesin [place], [place], [place]. This disclosure is being madepursuant to the Care Everywhere program and may not contain all information available regarding this patient. Last updated 18.[facility] Allergies No known active allergies Medications * [...] of normal 04/25/2013 Dermoid cyst of ovary Family History Medical History Relation Name Comments Hypertension Father Cancer - Other Maternal Aunt not sure of origin Cancer - Breast Mother Hypertension Other 1 Diabetes Other 2 Relation Name Status Comments Father Maternal Aunt Mother Alive Other 1 Other 2 Social History Tobacco Use Types Packs/Day Years [...] Mass Index 40.77 08/12/2021 10:14 AM CDT Plan of Treatment Health Maintenance Due Date Last Done Comments LIPID TESTING 1984 MAMMOGRAM 1984 HIV SCREENING 01/11/1999 HEPATITIS C SCREENING 01/07/2002 DTAP/TDAP/TD VACCINES (1 - Tdap) 01/11/2003 HEPATITIS B VACCINE (1 of 3 - 19+ 3-dose series) 01/11/2003 COVID-19 VACCINE ( - 2023-2 5 season) 2024 INFLUENZA VACCINE (#1) 2024 PAP SMEAR 08/12/2024 08/12/2021 DEPRESSION SCREENING 11/12/2024 ZOSTER VACCINE (1 of 2) 01/11/2034 HIB VACCINE Aged Out No longer eligi ble based on patient's age to complete this topic HPV VACCINE Aged Out No longer eligi ble based on patient's age to complete this topic MENINGOCOCCAL (Group B) VACCINE Aged Out No longer eligible based on patient's age to complete this topic MENINGOCOCCAL VACCINE Aged Out No lauren missy eligible based on patient's age to complete this topic PNEUMOCOCCAL VACCINE Aged Out No long er eligible based on patient's age to complete this topic Procedures Procedure Name Priority Date/Time Associated Diagnosis [...] endocervical component is identified. Clinician Provided ICD10 [facility] INSURANCE BILL Comment: Z01.419 N85.2 Performed by [facility] INSURANCE BILL Comment:Helen Interiano, Cyto technologist (ASCP) Comment . [facility] INSURANCE BILL Note [facility] INSURANCE BILL Comment: The Pap smear is [...] guided system. Human papillomavirus Aptima Negative Negative [facility] INSURANCE BILL Comment: This nucleic acid amplification test detects fourteen high-risk HPV types (16,18,31,33,35,39,45,51,52,56,58,59,66,68) without differentiation. Pathology/Cytolog y PART OF UTERINE CERVIX / Unknown 08/12/2021 11:19 AM CDT 08/15/2021 Narrative [facility] INSURANCE BILL - 08/16/2021 10:10 AM CDT No. of containers..01 ThinPrep Vial Resulting Agency Comment [facility]: [facility] [place] ??Srikanth VELÁZQUEZ [id number] Jose Rodriguez MD LAB - PATHOLOGY/CYT OLOGY ORDERABLES [facility] INSURANCE BILL [address] [address] from Last 3 Months or Most Recently [...] 8:29 AM 12/14/2011 11:45 AM Care Teams Precision Jig Grinder Relationship Specialty Start Date End Date Pilar Gunn MD [address] [address] PCP - General Internal Medicine 06/25/15 Ismael Spaulding RN Double End Trimmer 06/28/15
[2024-12-09 09:27] LABS: Influenza A QL RT-PCR Negative (Negative); Influenza B QL RT-PCR Negative (Negative); RSV RNA, RT-PCR Negative (Negative); SARS-CoV-2 RNA PCR Negative (Negative)
--- NOTE | 2024-12-09 10:09 | ED_ITS ---
HPI - General Adult General Chief complaint: Upper Respiratory Infection Stated complaint: ST, body aches Time Seen by Provider: 12/09/24 08:50 History of Present Illness HPI narrative: Elyssa Doss is a 39-year-old female who presents today with complaints of having body aches, sore throat, cough that started yet but her symptoms all started about 3 days ago. She states that she just isn't feeling well and make sure it was not COVID. She states that she has not taken any medications for her symptoms today. She states that she does have a history of hypertension and did take her losartan today. She denies any chest pain denies shortness of breath she denies any known fevers. She complains mostly the sore throat bothering her today. Related Data Home Medications ?Medication ?Instructions ?Recorded ?Confirmed ?Last Taken ?Type phentermine 37.5 mg tablet 37.5 mg PO DAILY 03/22/21 03/24/21 03/22/21 History topiramate 25 mg tablet 25 mg PO DAILY PRN Headache 03/22/21 03/24/21 03/22/21 History atenolol 100 mg tablet 100 mg PO DAILY 03/23/21 03/24/21 03/24/21 08:15 History lactobacillus combination no.8 3 3,000 mmu cells PO DAILY 03/24/21 03/24/21 03/22/21 History billion cell capsule (Adult Probiotic) misoprostol 200 mcg tablet 800 mcg PO ONCE 03/24/21 03/24/21 03/23/21 18:00 History prenat.vits,velma,cjb-kxzu-upcjg 1 tablet PO DAILY 03/24/21 03/24/21 03/22/21 History vitamin B complex 1 tablet PO DAILY 03/24/21 03/24/21 03/19/21 History Allergies Allergy/AdvReac Type Severity Reaction Status Date / Time No Known Allergies Allergy Verified 01/05/24 19:08 Review of Systems Review of Systems: All systems reviewed & are unremarkable except as noted in HPI and below PMFSH Past Medical History Medical History Missed Hypertension Surgical History Surgical History History of dilation and curettage H/O: History of laparoscopy No history of previous surgery Social History Social History Smoking status: Never smoker Alcohol use details: drinks somewhere between 1 pint to 1 fifth of alcohol 2-3x per week Substance use type: does not use Gender identity (if verbalized by the patient): Female Spiritual care concerns: No Exam Narrative: GENERAL: Well-appearing, well-nourished, and in no acute distress. HEAD: Normocephalic, atraumatic. EYES: PERRLA and EOMI. ENT: Nares clear, no rhinorrhea or epistaxis. Mucous membranes moist. Oropharynx positive erythema without tonsillar hypertrophy exudate or other lesions. Bilateral TMs pearly beltran nonbulging NECK: Supple. No adenopathy or masses. No carotid bruits or JVD CHEST: Clear to auscultation. No respiratory distress. No wheezes rales or rhonchi HEART: Regular rate and rhythm. No murmur heard. Normal peripheral pulses. ABDOMEN: Soft, nontender, nondistended, normal active bowel sounds. EXTREMITIES: Normal range of motion. No edema. SKIN: Warm, dry, no rash. NEURO: No focal deficits. Alert and oriented x3. PSYCH: Normal mood and affect. Course Vital Signs Vital signs: Vital Signs Temperature 36.4 C 12/09/24 08:41 Pulse Rate 67 12/09/24 08:41 Respiratory Rate 18 12/09/24 08:41 Blood Pressure 174/114 H 12/09/24 08:41 Pulse Oximetry 100 12/09/24 08:41 Temperature 36.4 C 12/09/24 08:41 Pulse Rate 67 12/09/24 08:41 Respiratory Rate 18 12/09/24 08:41 Blood Pressure 174/114 H 12/09/24 08:41 Pulse Oximetry 100 12/09/24 08:41 Oxygen Delivery Room Air 12/09/24 10:39 Medical Decision Making [facility] Narrative Medical decision making narrative: [age] year female who presents with symptoms consistent with an upper respiratory infection. Lung sounds clear to auscultate bilaterally respirations even unlabored satting 100% on room air. Checking COVID flu RSV which is all negative will also check a strep swab while treating her with ketorolac, Tylenol, Mucinex and the lozenges. Patient re-evaluated states that she feels a lot better and feels like she is ready to go home Provided with d/c instruction for URI Sent home with Mucinex b.i.d. lozenges continue telemetry and body aches that she had oral hydration close follow-up PCP return precautions discussed. Medical Records Medical records reviewed: Yes I reviewed the external patient's medical records. Vital Signs Vital Signs: Vital Signs Temperature 36.4 C 12/09/24 08:41 Pulse Rate 67 12/09/24 08:41 Respiratory Rate 18 12/09/24 08:41 Blood Pressure 174/114 H 12/09/24 08:41 Pulse Oximetry 100 12/09/24 08:41 Temperature 36.4 C 12/09/24 08:41 Pulse Rate 67 12/09/24 08:41 Respiratory Rate 18 12/09/24 08:41 Blood Pressure 174/114 H 12/09/24 08:41 Pulse Oximetry 100 12/09/24 08:41 Oxygen Delivery Room Air 12/09/24 10:39 vitals reviewed Lab Data Lab results reviewed: Yes I reviewed the patient's lab results. Labs: Lab Results 12/09/24 12/09/24 Range/Units 08:40 10:37 Influenza A (RT-PCR) Negative (Negative) Influenza B (RT-PCR) Negative (Negative) RSV (RT-PCR) Negative (Negative) SARS-CoV-2 RNA (RT-PCR) Negative (Negative) Group A Strep (PCR) Not detected (Negative) Discharge Plan Discharge Clinical Impression: Acute viral syndrome Upper respiratory infection Qualifiers: URI type: unspecified viral URI Qualified Code(s): J06.9 - Acute upper respiratory infection, unspecified Patient Disposition: Home, Self-Care Condition: Stable Instructions: Antibiotic Form Additional Instructions: Continues to take Tylenol Motrin for body aches and fever start taking Mucinex twice daily and the lozenges as ordered for your sore throat. Try to push hydration drinking plenty of fluids, get plenty of rest. Ensure your taking blood pressure medication and follow-up with your primary care doctor regarding your elevated blood pressure today. If he develops any worsening symptoms or any other concerns as always he may return to the ER. Patient Language: Marshallese Prescriptions: New guaifenesin [Mucinex] 1,200 mg tablet extended release 12hr 1,200 mg PO BID Qty: 20 0RF benzocaine 15 mg lozenge 15 mg mucous membrane Q2-3H PRN (Reason: sore throat) Qty: 18 0RF No Action topiramate 25 mg tablet 25 mg PO DAILY PRN (Reason: Headache) phentermine 37.5 mg tablet 37.5 mg PO DAILY atenolol 100 mg Tablet 100 mg PO DAILY vitamin B complex Tablet 1 tablet PO DAILY Vitamin Tablet 1 tablet PO DAILY Adult Probiotic 3 billion cell Capsule 3,000 mmu cells PO DAILY misoprostol 200 mcg tablet 800 mcg PO ONCE ondansetron 4 mg tablet,disintegrating 4 mg PO Q6H PRN (Reason: nausea and vomiting) Qty: 20 0RF hydrocodone-acetaminophen 5-325 mg tablet 1 tablet PO Q6H PRN (Reason: pain) Qty: 5 0RF acetaminophen 500 mg tablet 1,000 mg PO TID PRN (Reason: brady) 7 Days Qty: 42 0RF ibuprofen 800 mg tablet 800 mg PO TID PRN (Reason: pain) 7 Days Qty: 21 0RF oxycodone 5 mg tablet 5 mg PO Q4H PRN (Reason: pain) Qty: 6 0RF Follow-up/Referrals: UNKNOWN,DOCTOR [Primary Care Provider] - Time of Disposition: 11:55
[2024-12-09] MEDS: ACETAMINOPHEN 500 MG TABLET 1000 MG PO (10:32)
[2024-12-09] MEDS: KETOROLAC 30 MG/ML VIAL (*BKC) IM (10:32)
[2024-12-09] MEDS: BENZOCAINE/MENTHOL (*BKC) 18 EA LOZENGE 1 LOZENGE PO (10:32)
[2024-12-09] MEDS: guaiFENesin 12 HR 600 MG TABCR 1200 MG PO (10:33)
[2024-12-09 11:07] LABS: Strep Group A RT-PCR NOT DETECTED (Negative)
== END 2024-12-09 12:00 | disposition home or self-care (01) ==
PROVIDERS: Emergency Medicine; Emergency Provider Nurse Practitioner Family
DX: J06.9 Acute upper respiratory infection, unspecified (principal); B34.9 Viral infection, unspecified; Z20.822 Contact with and (suspected) exposure to COVID-19; I10 Essential (primary) hypertension
CPT/HCPCS: 87637; 87651; 96372; 99283; A9270; J1885